=== PATIENT | female | born 1950 | race Caucasian/White ===

== ENCOUNTER 2022-02-16 12:00 | Outpatient (CLI) | payer MEDICARE, SELFPAY ==
[2022-02-16 12:24] VITALS: BP 181/93; PULSE 57; RESP 18; O2SAT 94
[2022-02-16] MEDS: TETRACAINE 0.5% OPHTH 1 DROP EYE-BOTH ×3 (12:26→12:43)
[2022-02-16] MEDS: BRIMONIDINE TARTRATE 0.2% OPHTH 1 DROP EYE-BOTH ×2 (12:27→12:58)
--- NOTE | 2022-02-16 13:42 | P.OPTPRC_ITS ---
Procedure Note Date of procedure: 02/16/22 [facility] bill your pro fee for this procedure?: Yes Procedure Description: SURGEON: Valarie Robins MD PREOPERATIVE DIAGNOSIS: Posterior capsular opacity, right and left eye POSTOPERATIVE DIAGNOSIS: Posterior capsular opacity, right and left eye PROCEDURE: YAG laser capsulotomy, both eyes ANESTHESIA: Topical. ESTIMATED BLOOD LOSS: None PATHOLOGY SPECIMEN: None COMPLICATIONS: None INDICATIONS: See consult note for details. The risks, benefits and alternatives of the procedure were explained to the patient, who elected to proceed and signed informed consent to do so. PROCEDURE: The patient was brought to the pre-holding area where the right and left eyes were identified as the operative eyes. I placed my initials above the eyes. The following was given in both eyes: The patient received 2 sets of 1 drop of 0.5% tetracaine and 1 drop of 1% tropicamide. They also received 1 drop of 0.2% brimonidine. They received 1 drop of 0.5% tetracaine immediately prior to bringing them back for the procedure. The patient was then brought to the procedure room where the right and left eyes were again identified as the operative eyes. A YAG Jefferson capsulotomy lens was placed on the right eye. The laser was administered using a total number of 9 shots with an energy of 2.4 mJ per shot for a total energy of 22 mJ. The patient tolerated the procedure well. A YAG Jefferson capsulotomy lens was placed on the left eye. The laser was administered using a total number of 8 shots with an energy of 2.4 mJ per shot for a total energy of 19 mJ. The patient tolerated the procedure well. DISPOSITION: The patient was taken back to the pre-holding area and given 1 drop of 0.2% brimonidine in both eyes. They were discharged to home in stable condition. The patient was instructed to call me or go to the emergency de partment with any sudden change, including dramatic loss of vision, severe pain in the eye or eyebrow region, nausea, or vomiting. The patient was instructed to use the 0.2% brimonidine 1 drop 2 times a day in both eyes for 1 week. The patient will follow up in the clinic in 1-2 weeks. Surgeon: Valarie Robins MD
== END 2022-02-16 13:00 | disposition home or self-care (01) ==
LOC: EYE PRC 12:04
PROVIDERS: PCP Family Medicine; Visit Provider Ophthalmology
DX: H26.9 Unspecified cataract (principal)
CPT/HCPCS: 66821; A9270

== ENCOUNTER 2022-04-25 09:11 | Emergency (ER) | payer MEDICARE, SELFPAY ==
[2022-04-25 09:16] VITALS: BP 173/105; PULSE 52; RESP 22; TEMP 36.2; O2SAT 95; BMI 45.2
--- NOTE | 2022-04-25 09:38 | ED.GENADULT ---
HPI - General Adult General Time Seen by Provider: 09:38 Date Seen: 04/25/22 Chief complaint: Flank Pain Stated complaint: UTI, R side pain Time Seen by Provider: 04/25/22 09:38 Source: patient and RN notes reviewed Mode of arrival: ambulatory Limitations: no limitations History of Present Illness HPI narrative: Patient is a 71-year-old female that is coming in with increasing right abdominal pain/flank pain. She is feeling chilled, having dry heaves. Pain worsens at times. Diminished oral intake currently. Has not actually had a temperature but has felt quite clammy at times, usually in the setting of severe pain. Was having urinary symptoms in went to urgent care at [place] [id number] on Monday. Was started on Keflex for UTI. Patient does have a history of 1 kidney stone before. She states that she is quite intolerant of narcotic pain medicines, would prefer to not use these. She has been trying Advil at home for pain management. Did review with her that we can try a dose of IV Toradol which she would like to do before attempting any narcotics. Related Data Home Medications Medication Instructions Recorded Confirmed cephalexin 500 mg capsule 500 mg PO TID 04/25/22 04/25/22 hydrochlorothiazide 12.5 mg tablet 12.5 mg PO DAILY 04/25/22 04/25/22 losartan 100 mg tablet 100 mg PO DAILY 04/25/22 04/25/22 omeprazole 20 mg capsule,delayed 20 mg PO DAILY 04/25/22 04/25/22 release rosuvastatin 5 mg tablet 5 mg PO DAILY 04/25/22 04/25/22 Previous Rx's Medication Instructions Recorded ketorolac 10 mg tablet 10 mg PO TID PRN pain 5 days #15 04/25/22 tabs tamsulosin 0.4 mg capsule (Flomax) 0.4 mg PO DAILY #14 caps 04/25/22 Allergies Allergy/AdvReac Type Severity Reaction Status Date / Time Sulfa (Sulfonamide Allergy Mild Hives Verified 04/25/22 09:22 Antibiotics) Opioids - Morphine Analogues Allergy vomiting Verified 04/25/22 09:22 Review of Systems Status of ROS: Reports: 6 or more systems reviewed and unremarkable except as noted in History and below PFSH PFSH Social History Smoking Status: Smoker, status unknown Exam Const: Vital Signs, click to edit/add: Vital Signs - 24 hr 04/25/22 09:16 04/25/22 10:13 04/25/22 10:54 Temperature 97.1 F L Pulse Rate [Right Pulse Oximeter] 52 L 67 Respiratory Rate 22 Blood Pressure [Ri ght Upper Arm] 173/105 H Pulse Oximetry 95 95 94 Oxygen Delivery Me thod Room Air Room Air Common normals: no apparent distress, oriented x3, no limitations, healthy appearing, alert and well nourished General appearance: cooperative, comfortable, well kempt and well developed Nutritional appearance: obese HENMT: Common normals: normocephalic, head/scalp atraumatic, hearing grossly normal bilaterally and external ears normal Head and scalp: normocephalic and atraumatic External ear: external ears normal Eye: Common normals: PERRL, EOMs intact bilaterally, conjunctivae normal and no scleral icterus Conjunctiva: conjunctiva(e) normal Pupil: PERRL Neck & C-Spine: Common normals: full ROM, no lymphadenopathy, supple, no meningeal signs, no JVD and thyroid normal Thyroid: thyroid normal Resp: Common normals: normal respiratory effort, no retractions, no use of accessory muscles and clear to auscultation bilaterally Auscultation: clear to auscultation bilaterally Cardio: Common normals: no JVD, regular rate, regular rhythm, S1 normal heart sound, S2 normal heart sound, no gallops, no clicks and no murmurs Rate: regular rate Rhythm: regular rhythm Heart sounds: S1 normal and S2 normal GI: Common normals: Normal to inspection, nondistended, normoactive bowel sounds present, soft to palpation, no hepatosplenomegaly and no masses Palpation: soft and no hepatosplenomegaly Other: Has right sided mid to upper abdominal pain, seems to be no rebound or guarding at this time however. Extremity: Other: Patient has been up ambulatory in the ED going to the restroom to collect her urinalysis. No problems with ambulation. Neuro: Common normals: oriented x3 Sensorium/orientation: alert Meningeal signs: no meningeal signs Psych: Appearance: well kempt Course Course Hospital Course: Will attempt to get her urinalysis and urine culture records. She thinks maybe it was E coli. Reviewed with her given her symptoms, we need to definitely make sure that there is no underlying retained kidney stone. This would become a surgical emergency if she had an infected kidney stone. Will obtain 1 blood culture when we do blood work and get a 2nd 1 if need be. Will initiate a L of IV fluids over 2 hours, give her 15 mg IV Toradol. We will be checking her chemistries as well as other labs. Will also really run a urinalysis. Reevaluation(s) Reevaluation #1: Patient is feeling better on Toradol. Have reviewed with her that she does indeed have a 6 mm kidney stone in the right ureter. It is not up to the junction of going in the bladder yet. There is a chance that this may not passed through. We will initiate her on Flomax, send her with Toradol but at lower dosage. Have reviewed the renal dysfunction that can ensue with Toradol particularly as we age. It is working for her however and she does not tolerate narcotics. She has an appointment scheduled on Monday with her primary care provider Dr. Sr, I would like her to keep this. They can work on getting her scheduled to follow-up with urology if need be. Have reviewed the limitations of medical cares right now, difficulty with transfers and that there is no urology here. Patient does understand this. She does not seem to need narcotics at this time but this may need to be considered. Reviewed that there was a negative urine culture from her urgent care visit. We will also culture her urine from here. I believe I am just going to have her complete the Keflex however as she was nitrite positive from urgent care. Time: 12:04 Vital Signs Vital signs: Initial Vital Signs Temperature 97.1 F L 04/25/22 09:16 Temperature Source Temporal Artery Scan 04/25/22 09:16 Pulse Rate 52 L 04/25/22 09:16 Respiratory Rate 22 04/25/22 09:16 Blood Pressure 173/105 H 04/25/22 09:16 Blood Pressure Mean 127 04/25/22 09:16 Blood Pressure Position Sitting 04/25/22 09:16 Pulse Oximetry 95 04/25/22 09:16 Oxygen Delivery Method 04/25/22 09:16 Vital Signs Temperature 97.1 F L 04/25/22 09:16 Pulse Rate 52 L 04/25/22 09:16 Respiratory Rate 22 04/25/22 09:16 Blood Pressure 173/105 H 04/25/22 09:16 Pulse Oximetry 95 04/25/22 09:16 Oxygen Delivery Method 04/25/22 09:16 Temperature 97.1 F L 04/25/22 09:16 Pulse Rate 67 04/25/22 10:54 Respiratory Rate 22 04/25/22 09:16 Blood Pressure 173/105 H 04/25/22 09:16 Pulse Oximetry 94 04/25/22 10:54 Oxygen Delivery Method 04/25/22 10:54 Medical Decision Making Medical Records Medical records reviewed: Yes I reviewed the patient's medical records Medical records narrative: Patient's urinalysis from April 22 was brown, cloudy, specific gravity greater than 1.030, protein present, trace ketones, no glucose, large occult blood, positive nitrates, trace leukocyte esterase, 51-100 red blood cells, 0-2 white blood cells, few bacteria, no epithelial cells. Urine culture is no growth. Lab Data Lab results reviewed: Yes I reviewed the patient's lab results Labs: Lab Results 04/25/22 04/25/22 04/25/22 Range/Units 09:44 10:15 10:15 WBC 7.92 (4.50-11.00) K/uL RBC 4.74 (4.00-5.20) m/uL Hgb 14.9 (12.0-16.0) gm/dL Hct 46.1 (33.0-51.0) % MCV 97 (80-100) fL MCH 31 (26-34) pg MCHC 32 (32-36) gm/dL RDW Coeff of Trip 12.9 (11.5-15.5) % Plt Count 151 (140-440) K/uL Neut % (Auto) 88.1 H (42.0-72.0) % Lymph % (Auto) 6.8 L (20-44) % [place] % (Auto) 4.2 (0.0-11.0) % Eos % (Auto) 0.5 (0.0-7.0) % Baso % (Auto) 0.1 (0.0-3.0) % Neut # (Auto) 7.00 (1.7-7.0) K/uL Lymph # (Auto) 0.50 L (0.90-2.90) K/uL [place] # (Auto) 0.30 (0.00-0.90) K/UL Eos # (Auto) 0.04 (0.00-0.50) K/uL Baso # (Auto) 0.01 (0.00-0.30) K/uL Sodium 141 (135-149) mmol/L Potassium 4.1 (3.6-5.1) mmol/L Chloride 106 (96-114) mmol/L Carbon Dioxide 31 (20-32) mmol/L BUN 19 (7-30) mg/dL Creatinine 1.0 (0.5-1.5) mg/dL Estimated Creat Clear 49.00 Estimated GFR 61 ml/min Glucose 132 H (60-115) mg/dL Lactate (0.5-1.9) mmol/L Calcium 9.4 (8.4-10.6) mg/dL C-Reactive Protein < 0.5 L (0.5-1.0) mg/dL Urine Color Brown A (Yellow) Urine Appearance Cloudy A (Clear) Urine pH 6.0 (5.0-8.5) Ur Specific [place] >= 1.030 (1.000-1.030) Urine Protein 2+ A (Negative) Urine Glucose (UA) Negative (Negative) Urine Ketones Negative (Negative) Urine Blood 3+ A (Negative) Urine Nitrite Negative (Negative) Urine Bilirubin Negative (Negative) Urine Urobilinogen 0.2 (0.2-1.0) Ur Leukocyte Esterase Negative (Negative) Urine RBC 50-100 A (0-2) Urine WBC 0-2 (0-5) Ur Squamous Epith Cells Moderate A (None-Few) Urine Bacteria Moderate A (None) 04/25/22 Range/Units 10:15 WBC (4.50-11.00) K/uL RBC (4.00-5.20) m/uL Hgb (12.0-16.0) gm/dL Hct (33.0-51.0) % MCV (80-100) fL MCH (26-34) pg MCHC (32-36) gm/dL RDW Coeff of Trip (11.5-15.5) % Plt Count (140-440) K/uL Neut % (Auto) (42.0-72.0) % Lymph % (Auto) (20-44) % [place] % (Auto) (0.0-11.0) % Eos % (Auto) (0.0-7.0) % Baso % (Auto) (0.0-3.0) % Neut # (Auto) (1.7-7.0) K/uL Lymph # (Auto) (0.90-2.90) K/uL [place] # (Auto) (0.00-0.90) K/UL Eos # (Auto) (0.00-0.50) K/uL Baso # (Auto) (0.00-0.30) K/uL Sodium (135-149) mmol/L Potassium (3.6-5.1) mmol/L Chloride (96-114) mmol/L Carbon Dioxide (20-32) mmol/L BUN (7-30) mg/dL Creatinine (0.5-1.5) mg/dL Estimated Creat Clear Estimated GFR ml/min Glucose (60-115) mg/dL Lactate 1.2 (0.5-1.9) mmol/L Calcium (8.4-10.6) mg/dL C-Reactive Protein (0.5-1.0) mg/dL Urine Color (Yellow) Urine Appearance (Clear) Urine pH (5.0-8.5) Ur Specific [place] (1.000-1.030) Urine Protein (Negative) Urine Glucose (UA) (Negative) Urine Ketones (Negative) Urine Blood (Negative) Urine Nitrite (Negative) Urine Bilirubin (Negative) Urine Urobilinogen (0.2-1.0) Ur Leukocyte Esterase (Negative) Urine RBC (0-2) Urine WBC (0-5) Ur Squamous Epith Cells (None-Few) Urine Bacteria (None) Imaging Data CT scan - abdomen: Attestation: I have reviewed the pertinent imaging results. My impression: Reviewed her CT preliminarily. I do think I see a right-sided stone in the ureter, do see some hydronephrosis. Await Radiology over-read. Radiologist's impression: Patient: RAN BIANCHI Facility:?[facility] Patient ID:?[id number] Site Patient ID:?[id number]. Site :?[id number] Study:?CT Abdomen/Pelvis W/O-04/25/2022 10:35:14 AM Ordering Physician:?Bision Karen Final Report: INDICATION: Flank pain. TECHNIQUE: CT abdomen and pelvis without contrast. COMPARISON: None. FINDINGS: Lower chest: Unremarkable. Liver: Normal in size and attenuation. No suspicious masses. Gallbladder and bile ducts: No stones or inflammation. No biliary dilatation. Pancreas: Unremarkable. No mass or inflammation. Spleen: Normal in size. No masses. Adrenal glands: Normal in size. No nodules. Kidneys: Moderate right hydroureteronephrosis extending to the level of a 6 millimeter stone within the distal right ureter approximately 5 centimeters from the UVJ. No additional urinary tract calculi. GI tract: Unremarkable. Normal in caliber. No sign of mass or inflammation. Colonic diverticulosis without evidence of acute diverticulitis. Vasculature: Abdominal aorta is normal in caliber. Scattered atherosclerosis. Lymph nodes: No lymphadenopathy. Peritoneum/Abdominal Wall: Unremarkable. No sign of mass or infiltration. No free air or significant free fluid. Pelvis: Unremarkable. No pelvic masses. Bones: Degenerative spondylosis. No acute osseous abnormality. IMPRESSION: 1. 6 millimeter stone within the distal right ureter results in moderate right hydroureteronephrosis. 2. Colonic diverticulosis without evidence of acute diverticulitis Please note that all CT scans at this facility use dose modulation, iterative reconstruction, and/or weight-based dosing when appropriate to reduce radiation dose to as low as reasonably achievable. Dictated by Torito Fuentes MD @ 04/25/2022 10:58:16 AM (Electronic Signature) Critical Care Time Critical Care Time Critical Care Time: No Discharge Plan Discharge Clinical Impression: Renal colic on right side Patient Disposition: Home, Self-Care Condition: Stable Instructions: Kidney Stones (ED), Renal Colic (ED) Additional Instructions: Use Toradol instead of Advil until the Toradol gone. Can use Tylenol well on either of these and may want to try some at a dosage of a 1000 mg up to 3 times a day to supplement pain management. Take Flomax daily until the stone has passed. Keep your clinic appointment with your primary care provider this Monday, I would like her to recheck your kidney functions since you have an obstructing stone on the right side and the fact that we are using Toradol. You may end up needing to see Urology, she can put in a referral for this. In the meantime, if you have uncontrolled pain, nausea vomiting and cannot take in oral pain medicines or fluids, develop a fever with this kidney stone in place, need to be emergently re-evaluated. Recommend pushing fluids for a goal of clear looking urine. Activity Level: Activity as Tolerated Discharge Diet: Regular Prescriptions: New tamsulosin [Flomax] 0.4 mg capsule 0.4 mg PO DAILY Qty: 14 0RF ketorolac 10 mg tablet 10 mg PO TID PRN (Reason: pain) 5 Days Qty: 15 0RF No Action cephalexin 500 mg capsule 500 mg PO TID Label Comments: TAKE ONE CAPSULE BY MOUTH THREE TIMES A DAY FOR 7 DAYS hydrochlorothiazide 12.5 mg tablet 12.5 mg PO DAILY Label Comments: TAKE ONE TABLET BY MOUTH EVERY DAY losartan 100 mg tablet 100 mg PO DAILY Label Comments: TAKE ONE TABLET BY MOUTH EVERY DAY ALONG WITH THE HYDROCHLOROTHIAZIDE omeprazole 20 mg capsule,delayed release(DR/EC) 20 mg PO DAILY Label Comments: TAKE ONE CAPSULE BY MOUTH EVERY DAY BEFORE A MEAL rosuvastatin 5 mg tablet 5 mg PO DAILY Label Comments: TAKE ONE TABLET BY MOUTH AT BEDTIME Follow Up/Referrals: Lindy Sr DO [Primary Care Provider] - Stand Alone Forms: OY LX [employer] Info Instructions
[2022-04-25 09:53] LABS: Appearance Urine Cloudy (Clear); Bilirubin Urine Negative (Negative); Blood Urine 3+ (Negative); Color Urine Brown (Yellow); Glucose Urine Negative (Negative); Ketones Urine Negative (Negative); Leukocyte Esterase Urine Negative (Negative); Nitrite Urine Negative (Negative); Protein Urine 2+ (Negative); Specific Gravity Urine >= 1.030 (1.000-1.030); Urobilinogen Urine 0.2 (0.2-1.0)
--- NOTE | 2022-04-25 09:55 | CRLHL7_ITS ---
For Patients: As a result of the Century Cures Act, medical imaging exams and procedure reports are released immediately into your electronic medical record. You may view this report before your referring provider. If you have questions, please contact your health care provider. INDICATION: Flank pain. TECHNIQUE: CT abdomen and pelvis without contrast. COMPARISON: None. FINDINGS: Lower chest: Unremarkable. Liver: Normal in size and attenuation. No suspicious masses. Gallbladder and bile ducts: No stones or inflammation. No biliary dilatation. Pancreas: Unremarkable. No mass or inflammation. Spleen: Normal in size. No masses. Adrenal glands: Normal in size. No nodules. Kidneys: Moderate right hydroureteronephrosis extending to the level of a 6 millimeter stone within the distal right ureter approximately 5 centimeters from the UVJ. No additional urinary tract calculi. GI tract: Unremarkable. Normal in caliber. No sign of mass or inflammation. Colonic diverticulosis without evidence of acute diverticulitis. Vasculature: Abdominal aorta is normal in caliber. Scattered atherosclerosis. Lymph nodes: No lymphadenopathy. Peritoneum/Abdominal Wall: Unremarkable. No sign of mass or infiltration. No free air or significant free fluid. Pelvis: Unremarkable. No pelvic masses. Bones: Degenerative spondylosis. No acute osseous abnormality. IMPRESSION: 1. 6 millimeter stone within the distal right ureter results in moderate right hydroureteronephrosis. 2. Colonic diverticulosis without evidence of acute diverticulitis Please note that all CT scans at this facility use dose modulation, iterative reconstruction, and/or weight-based dosing when appropriate to reduce radiation dose to as low as reasonably achievable. Dictated by Torito Fuentes MD @ 04/25/2022 10:58:16 AM (Electronically Signed)
[2022-04-25 10:02] LABS: Bacteria Urine Moderate; RBC Urine 50-100 (0-2); Squamous Epithelial Cell Urine Moderate (None-Few); WBC Urine 0-2 (0-5)
[2022-04-25 10:13] VITALS: O2SAT 95
[2022-04-25] MEDS: KETOROLAC 15 MG/ML inj IVP (10:15)
[2022-04-25] MEDS: ONDANSETRON 2 MG/ML inj 4 MG IVP (10:15)
[2022-04-25] MEDS: 0.9 % SODIUM CHLORIDE 1000 ml 1,000 ML 500 ML IV (10:15)
[2022-04-25 10:25] LABS: Lactate* 1.2 mmol/L (0.5-1.9)
[2022-04-25 10:26] LABS: Basophils Absolute Auto 0.01 K/uL (0.00-0.30); Basophils Percent Auto 0.1 % (0.0-3.0); Eosinophils Absolute Auto 0.04 K/uL (0.00-0.50); Eosinophils Percent Auto 0.5 % (0.0-7.0); Hematocrit 46.1 % (33.0-51.0); Hemoglobin* 14.9 gm/dL (12.0-16.0); Immature Granulocytes Abs Auto 0.02 K/uL (0.00-0.30); Immature Granulocytes Pct Auto 0.3 %; Lymphocytes Percent Auto 6.8 % (20-44); Mean Corpuscular HGB Conc 32 gm/dL (32-36); Mean Corpuscular Hemoglobin 31 pg (26-34); Mean Corpuscular Volume 97 fL (80-100); Monocytes Percent Auto 4.2 % (0.0-11.0); Neutrophils Percent Auto 88.1 % (42.0-72.0); Platelet Count* 151 K/uL (140-440); RDW Coefficient of Variation % 12.9 % (11.5-15.5); Red Blood Count 4.74 m/uL (4.00-5.20); White Blood Count* 7.92 K/uL (4.50-11.00)
[2022-04-25 10:27] LABS: Slide Review Reflex No
[2022-04-25 10:44] LABS: Chloride* 106 mmol/L (96-114); Potassium* 4.1 mmol/L (3.6-5.1); Sodium* 141 mmol/L (135-149)
[2022-04-25 10:47] LABS: Estimated Glomerular Filt Rate 61 ml/min
[2022-04-25 10:48] LABS: Blood Urea Nitrogen* 19 mg/dL (7-30); Calcium* 9.4 mg/dL (8.4-10.6); Carbon Dioxide* 31 mmol/L (20-32); Glucose* 132 mg/dL (60-115)
[2022-04-25 10:54] VITALS: PULSE 67; O2SAT 94
[2022-04-25 11:00] LABS: C Reactive Protein* < 0.5 mg/dL (0.5-1.0)
[2022-04-25 12:15] VITALS: PULSE 59; RESP 18; O2SAT 93
[2022-04-25 12:16] VITALS: BP 173/105; PULSE 59; RESP 18; TEMP 36.2
== END 2022-04-25 12:24 | disposition home or self-care (01) ==
PROVIDERS: Emergency Provider Family Medicine; PCP Family Medicine
DX: N23 Unspecified renal colic (principal)
CPT/HCPCS: 36415; 74176; 80048; 81001; 83605; 85025; 86140; 87040; 87086; 94761; 96360; 96374; 96375; 99284; J1885; J2405; J7030

== ENCOUNTER 2023-05-29 08:56 | Emergency (ER) | payer MEDICARE, SELFPAY ==
[2023-05-29] VITALS (22 sets, daily range): BP systolic 90–140; BP diastolic 54–95; PULSE 45–58; RESP 8–29; TEMP 36.9; O2SAT 89–99; BMI 43.1
--- NOTE | 2023-05-29 | XR_ITS ---
Patient: RAN BIANCHI Facility:?[facility] Patient ID:?[id number] Site Patient ID:?[id number]. Site :?[id number] Study:?XRay-Extremity Left SHOULDER-05/29/2023 11:56:32 AM Ordering Physician:?DR BRASWELL Final Report: INDICATION: Postreduction COMPARISON: Same day humerus radiographs TECHNIQUE: AP one-view left shoulder FINDINGS: No fracture. Grossly normal glenohumeral alignment, would be better evaluated with a scapular Y or axillary view. Joint spaces are normal. No focal bone lesions. Normal bone mineralization. Soft tissues are normal. No foreign body. IMPRESSION: Grossly normal left glenohumeral alignment. No fracture seen. Dictated by Beatrice Christie MD @ 05/29/2023 12:02:50 PM Signed by:?Beatrice Christie MD @05/29/2023 12:02:50 PM (Electronic Signature)
--- NOTE | 2023-05-29 09:03 | ED_ITS ---
HPI - General Adult General Time Seen by Provider: 09:03 Date Seen: 05/29/23 Chief complaint: Extremity Pain/Injury, Upper Stated complaint: fall Time Seen by Provider: 05/29/23 09:03 Source: patient, EMS, RN notes reviewed and old records reviewed Mode of arrival: EMS Limitations: no limitations History of Present Illness HPI narrative: 72-year-old female who comes in today after fall. Reviewed prior emergency department record from April 2022 when patient seen with renal colic, found to have a 6 mm kidney stone, treated and discharged. Patient has a history of hypertension. Presents today after fall. She was outside and tripped, complains mostly pain in left shoulder although having some pain in the right ribcage is well now. Also says she hit her left knee. No head injury loss of consciousness, no back pain or abdominal pain. Related Data Home Medications Medication Instructions Recorded Confirmed cephalexin 500 mg capsule 500 mg PO TID 04/25/22 04/25/22 hydrochlorothiazide 12.5 mg tablet 12.5 mg PO DAILY 04/25/22 05/29/23 losartan 100 mg tablet 100 mg PO DAILY 04/25/22 05/29/23 omeprazole 20 mg capsule,delayed 20 mg PO DAILY 04/25/22 05/29/23 release rosuvastatin 5 mg tablet 5 mg PO DAILY 04/25/22 05/29/23 vitamins A,C,J-moix-fqynic 4,296 1 cap PO DAILY 05/29/23 05/29/23 mcg-226 mg-90 mg capsule (PreserVision AREDS) Previous Rx's Medication Instructions Recorded ketorolac 10 mg tablet 10 mg PO TID PRN pain 5 days #15 04/25/22 tabs tamsulosin 0.4 mg capsule (Flomax) 0.4 mg PO DAILY #14 caps 04/25/22 Allergies Allergy/AdvReac Type Severity Reaction Status Date / Time Sulfa (Sulfonamide Allergy Mild Hives Verified 05/29/23 09:04 Antibiotics) Opioids - Morphine Analogues Allergy vomiting Verified 05/29/23 09:04 PFSH PFSH Social History Smoking Status: Never smoker How often do you have a drink containing alcohol: never AUDIT-C Alcohol total score: 0 Non-prescribed substance use: denies use Exam Narrative: Exam Narrative: General: Well-developed and well-nourished, no acute distress Head: Atraumatic and normocephalic Eyes: Pupils are equal reactive, extraocular motions intact, conjunctiva clear ENT: External nose and ears are normal, posterior pharynx without erythema or exudate Neck: No midline cervical tenderness, full spontaneous range of motion the neck, trachea midline, no adenopathy Heart: Regular rate and rhythm no murmurs or thrills Lungs: Clear to auscultation bilaterally without wheezes or crackles Abdomen: Soft, nontender, nondistended with active bowel sounds Musculoskeletal: Tenderness of the left shoulder/proximal humerus, no tenderness of the clavicle. Swelling and bruising of the left knee, abrasion of the left knee. Abrasion of the right arm. Neurologic: Awake, alert, and oriented x3, no gross focal neurologic deficits, cranial nerves intact as tested Psych: Mood and affect are appropriate Skin: No rashes Const: Vital Signs, click to edit/add: Vital Signs - 24 hr 05/29/23 09:01 05/29/23 09:43 05/29/23 10:00 Temperature 98.4 F Pulse Rate 54 L 45 L Pulse Rate [Pulse Oximeter] 55 L Respiratory Rate 16 Blood Pressure Blood Pressure [Ri ght Upper Arm] 140/95 H Pulse Oximetry 94 97 95 Oxygen Delivery Me thod Nasal Cannula Oxygen Flow Rate 2 05/29/23 10:17 05/29/23 10:30 05/29/23 10:32 Temperature Pulse Rate 50 L 49 L 54 L Pulse Rate [Pulse Oximeter] Respiratory Rate 16 14 13 Blood Pressure 116/78 124/78 Blood Pressure [Ri ght Upper Arm] Pulse Oximetry 93 94 96 Oxygen Delivery Me thod Oxygen Flow Rate 05/29/23 11:00 05/29/23 11:00 05/29/23 11:02 Temperature Pulse Rate 54 L 54 L Pulse Rate [Pulse Oximeter] Respiratory Rate 14 15 Blood Pressure 131/79 Blood Pressure [Ri ght Upper Arm] Pulse Oximetry 95 96 96 Oxygen Delivery Me thod Nasal Cannula Oxygen Flow Rate 05/29/23 11:02 05/29/23 11:03 05/29/23 11:30 Temperature Pulse Rate 54 L 55 L 53 L Pulse Rate [Pulse Oximeter] Respiratory Rate 15 14 19 Blood Pressure 131/79 Blood Pressure [Ri ght Upper Arm] Pulse Oximetry 96 96 99 Oxygen Delivery Me thod Oxygen Flow Rate 05/29/23 11:33 05/29/23 11:36 05/29/23 11:42 Temperature Pulse Rate 51 L 54 L 57 L Pulse Rate [Pulse Oximeter] Respiratory Rate 29 H 8 L 10 L Blood Pressure 114/71 124/78 137/61 Blood Pressure [Ri ght Upper Arm] Pulse Oximetry 98 97 89 Oxygen Delivery Me thod Oxygen Flow Rate 05/29/23 11:50 05/29/23 11:50 05/29/23 11:52 Temperature Pulse Rate 55 L 55 L 56 L Pulse Rate [Pulse Oximeter] Respiratory Rate 9 L 9 L 11 L Blood Pressure 110/57 L 110/57 L 108/59 L Blood Pressure [Ri ght Upper Arm] Pulse Oximetry 96 96 97 Oxygen Delivery Me thod Oxygen Flow Rate 05/29/23 11:57 05/29/23 12:00 05/29/23 12:02 Temperature Pulse Rate 58 L 55 L 57 L Pulse Rate [Pulse Oximeter] Respiratory Rate 12 11 L 16 Blood Pressure 103/61 90/54 L Blood Pressure [Ri ght Upper Arm] Pulse Oximetry 98 99 98 Oxygen Delivery Me thod Oxygen Flow Rate 05/29/23 12:07 Temperature Pulse Rate 58 L Pulse Rate [Pulse Oximeter] Respiratory Rate 14 Blood Pressure 107/56 L Blood Pressure [Ri ght Upper Arm] Pulse Oximetry 97 Oxygen Delivery Me thod Oxygen Flow Rate Course Course ED Course: Patient seen examined, prior emergency department records from April 2022 reviewed. Patient presents today after a fall. She complains predominantly pain in left shoulder and has tenderness of the proximal humerus, suspect fracture, dislocation possible, x-rays are ordered. Also complains of some occasional sharp pain on the right side although this is not constant and not reproducible, however does get worse with breathing and so x-rays are ordered. Abrasion with marked swelling and bruising over the left knee, x-ray ordered although patient has had a total knee on this side and this does not appear to be dislocated or displaced. Received fentanyl 100 mcg per EMS, Toradol and add itional data will be given in the department. Reevaluation(s) Time of Reevaluation #1: 09:34 Reevaluation #1: X-ray of the left knee independently interpreted by me negative for acute fracture. X-ray of the left humerus demonstrates dislocation. Two sticks drinking completely interpreted by me negative for hemothorax, pneumothorax. Time of Reevaluation #2: 10:27 Reevaluation #2: With multiple attempts of the Davos and Landa technique over 30 minutes with no reduction. Anesthesia contacted for sedation. Time of Reevaluation #3: 11:47 Reevaluation #3: Procedure: Shoulder reduction. Risks and benefits discussed with the patient, written consent was obtained. Sedation with propofol per anesthesia. Pulse oximetry, end-tidal CO2, telemetry in place. Advanced airway equipment immediately available. After assuring sedation, the left shoulder was externally rotated. There was a slight click but the humeral head was still obviously anterior dislocated come this likely represented subluxation at the glenoid. Subsequently with external rotation a more palpable funk was felt with improvement of joint alignment. X-ray was ordered to confirm reduction and postprocedure x-ray does appear to show successful reduction of the dislocation. Patient recovered from sedation. Patient did require brief jaw thrust to maintain saturations. Overall tolerated procedure well. Total MD time 15 minutes. Vital Signs Vital signs: Initial Vital Signs Temperature 98.4 F 05/29/23 09:01 Temperature Source Temporal Artery Scan 05/29/23 09:01 Pulse Rate 55 L 05/29/23 09:01 Pulse Rhythm Regular 05/29/23 09:01 Pulse Strength 3+ Normal 05/29/23 09:01 Respiratory Rate 16 05/29/23 09:01 Blood Pressure 140/95 H 05/29/23 09:01 Blood Pressure Mean 110 H 05/29/23 09:01 Blood Pressure Position Sitting 05/29/23 09:01 Pulse Oximetry 94 05/29/23 09:01 Oxygen Delivery Method Nasal Cannula 05/29/23 09:01 Oxygen Flow Rate 2 05/29/23 09:01 Vital Signs Temperature 98.4 F 05/29/23 09:01 Pulse Rate 55 L 05/29/23 09:01 Respiratory Rate 16 05/29/23 09:01 Blood Pressure 140/95 H 05/29/23 09:01 Pulse Oximetry 94 05/29/23 09:01 Oxygen Delivery Method Nasal Cannula 05/29/23 09:01 Oxygen Flow Rate 2 05/29/23 09:01 Temperature 98.4 F 05/29/23 09:01 Pulse Rate 58 L 05/29/23 12:07 Respiratory Rate 14 05/29/23 12:07 Blood Pressure 107/56 L 05/29/23 12:07 Pulse Oximetry 97 05/29/23 12:07 Oxygen Delivery Method Nasal Cannula 05/29/23 11:00 Oxygen Flow Rate 2 05/29/23 09:01 Medications Administered Medications: Discontinued Medications Generic Name Dose Route Start Last Admin Trade Name Miracle PRN Reason Stop Dose Admin Fentanyl 50 mcg 05/29/23 09:35 05/29/23 11:00 Fentanyl 100 Mcg/2 Ml Inj IVP 05/29/23 09:36 Not Given ONCE ONE Ketorolac Tromethamine 15 mg 05/29/23 09:11 05/29/23 09:16 Ketorolac 15 Mg/Ml Inj IVP 05/29/23 09:12 15 mg ONCE ONE Administration Lorazepam 0.5 mg 05/29/23 10:37 05/29/23 10:45 Lorazepam 2 Mg/Ml Inj IVP 05/29/23 10:38 0.5 mg ONCE ONE Administration Ondansetron HCl 4 mg 05/29/23 10:52 05/29/23 10:00 Ondansetron 2 Mg/Ml Inj IVP 05/29/23 10:53 4 mg ONCE ONE Administration Discharge Plan Discharge Clinical Impression: Anterior dislocation of left shoulder, Contusion of knee, left, Abrasion of elbow, right Patient Disposition: Home, Self-Care Condition: Stable Instructions: Shoulder Dislocation (ED), Abrasion (ED), Procedural Sedation (ED) Additional Instructions: Tylenol and ibuprofen as needed for pain Ice today and tomorrow Follow-up with orthopedics this week Call [facility] [phone] for a follow-up appointment this week for recheck and physical exam Activity Detail: Do not lift the shoulder over shoulder height or reach behind you. Discharge Diet: Regular Prescriptions: No Action cephalexin 500 mg capsule 500 mg PO TID Patient Comments: TAKE ONE CAPSULE BY MOUTH THREE TIMES A DAY FOR 7 DAYS hydrochlorothiazide 12.5 mg tablet 12.5 mg PO DAILY Patient Comments: TAKE ONE TABLET BY MOUTH EVERY DAY losartan 100 mg tablet 100 mg PO DAILY Patient Comments: TAKE ONE TABLET BY MOUTH EVERY DAY ALONG WITH THE HYDROCHLOROTHIAZIDE omeprazole 20 mg capsule,delayed release(DR/EC) 20 mg PO DAILY Patient Comments: TAKE ONE CAPSULE BY MOUTH EVERY DAY BEFORE A MEAL rosuvastatin 5 mg tablet 5 mg PO DAILY Patient Comments: TAKE ONE TABLET BY MOUTH AT BEDTIME tamsulosin [Flomax] 0.4 mg capsule 0.4 mg PO DAILY Qty: 14 0RF ketorolac 10 mg tablet 10 mg PO TID PRN (Reason: pain) 5 Days Qty: 15 0RF PreserVision AREDS 4,296 mcg-226 mg-90 mg capsule 1 cap PO DAILY Follow Up/Referrals: Orthopedics, [facility] [Provider Group] Lindy Sr DO [Primary Care Provider] - Stand Alone [facility]
--- NOTE | 2023-05-29 09:11 | XR_ITS ---
Patient: RAN BIANCHI Facility:?[facility] Patient ID:?[id number] Site Patient ID:?[id number]. Site :?1950 Study:?XRay-Chest 1 VIEW-05/29/2023 9:38:10 AM Ordering Physician:KESHAV Final Report: Indication: Fall Technique: Chest 1 view Comparison: None Findings/Impression: Cardiovascular and mediastinum: Mild cardiomegaly with aortic tortuosity and slight prominence of the superior mediastinum. Suggest chest CT with IV contrast for further evaluation. Lungs and pleural space: Low lung volumes without pleural effusion or pneumothorax. Pulmonary cephalization. Bones and soft tissues: Anterior dislocation of the left humerus the glenohumeral joint with small ossific fragment at the joint space, likely a small chip type fracture from the humeral head. This can also be evaluated at the time of CT. Dictated by Jerald Nagel MD @ 05/29/2023 9:55:52 AM Signed by:?Jerald Nagel MD @05/29/2023 9:55:52 AM (Electronic Signature)
--- NOTE | 2023-05-29 09:11 | XR_ITS ---
Patient: RAN BIANCHI Facility:?[facility] Patient ID:?[id number] Site Patient ID:?[id number]. Site :?1950 Study:?XRay-Extremity Left HUMERUS-05/29/2023 9:39:02 AM Ordering Physician:KESHAV Final Report: Indication: Fall Technique: Two views humerus Comparison: None Findings/Impression: No definite evidence of fracture. Anterior dislocation of the humerus at the level of the glenohumeral joint. Mild left acromioclavicular osteoarthritis. Dictated by Jerald Nagel MD @ 05/29/2023 9:42:31 AM Signed by:?Jerald Nagel MD @05/29/2023 9:42:31 AM (Electronic Signature)
--- NOTE | 2023-05-29 09:11 | XR_ITS ---
Patient: RAN BIANCHI Facility:?[facility] Patient ID:?[id number] Site Patient ID:?[id number] Site :?1950 Study:?XRay-Knee Left 2 view-05/29/2023 9:36:14 AM Ordering Physician:KESHAV Final Report: INDICATION: Fall. TECHNIQUE: Two views of the left knee. COMPARISON: None. FINDINGS: Osseous demineralization limits evaluation for nondisplaced fracture. No displaced fracture is visualized. Alignment is anatomic. Tricompartmental marginal osteophytes. Mild medial compartment joint space narrowing. No knee joint effusion. Mild prepatellar and calf soft tissue swelling. Atherosclerotic arterial calcifications. IMPRESSION: No displaced fracture. Dictated by Elsy Reyes MD @ 05/29/2023 9:39:38 AM Signed by:?Elsy Reyes MD @05/29/2023 9:39:38 AM (Electronic Signature)
[2023-05-29] MEDS: KETOROLAC 15 MG/ML inj IVP (09:16)
[2023-05-29] MEDS: ONDANSETRON 2 MG/ML inj 4 MG IVP (10:00)
[2023-05-29] MEDS: LORazepam 2 MG/ML inj 0.5 MG IVP (10:45)
--- NOTE | 2023-05-29 11:55 | W.ANESCHARGE ---
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
== END 2023-05-29 13:03 | disposition home or self-care (01) ==
PROVIDERS: Emergency Provider Family Medicine; PCP Family Medicine
DX: S43.015A Anterior dislocation of left humerus, initial encounter (principal); W01.0XXA Fall on same level from slipping, tripping and stumbling without subsequent striking against object, initial encounter; S80.02XA Contusion of left knee, initial encounter; S50.311A Abrasion of right elbow, initial encounter
CPT/HCPCS: 23655; 01620; 71045; 73020; 73060; 73560; 96374; 96375; 99140; 99284; J1885; J2060; J2405; J2704

== ENCOUNTER 2023-06-13 16:37 | Emergency (ER) | payer MEDICARE, SELFPAY ==
[2023-06-13 16:40] VITALS: BP 171/108; PULSE 65; RESP 16; TEMP 36.8; O2SAT 94; BMI 46.6
--- NOTE | 2023-06-13 16:48 | ED_ITS ---
HPI - General Adult General Time Seen by Provider: 16:48 Date Seen: 06/13/23 Chief complaint: Extremity Pain/Injury, Lower Stated complaint: Fell 2 weeks ago-was here-bruise hot and red L leg Time Seen by Provider: 06/13/23 16:40 Source: patient, RN notes reviewed and old records reviewed Mode of arrival: ambulatory Limitations: no limitations History of Present Illness HPI narrative: This 72-year-old female is coming in with increasing left leg pain, swelling redness. She had a fall and was evaluated in the ER on May 28. She reportedly had a contusion or abrasion below the left knee. She has seen Orthopedics for her left shoulder, is improving, will be starting physical therapy at some point. Over the weekend she noted increasing redness and swelling of this leg but no fevers. She had chills the other day but really has had no documented fevers and no increasing chills. She has not felt ill. Both legs have develop some swelling and she has started Lasix for this. However the left leg is more red, seems to be more swollen and feels more tender. There is site of prominent pain or tenderness where the area of bruising was. She is not on any blood thinners. Denies any difficulty breathing, no chest pain, no shortness of breath. Related Data Home Medications Medication Instructions Recorded Confirmed hydrochlorothiazide 12.5 mg tablet 12.5 mg PO DAILY 04/25/22 06/02/23 losartan 100 mg tablet 100 mg PO DAILY 04/25/22 06/02/23 omeprazole 20 mg capsule,delayed 20 mg PO DAILY 04/25/22 06/02/23 release rosuvastatin 5 mg tablet 5 mg PO DAILY 04/25/22 06/02/23 psyllium husk 0.4 gram capsule 0.8 g PO QDAY 06/02/23 06/02/23 (Fiber (psyllium husk)) vitamins A,C,V-jfzh-xxuiab 4,296 1 cap PO BID 06/02/23 06/02/23 mcg-226 mg-90 mg capsule (PreserVision AREDS) furosemide 20 mg tablet 20 mg PO QAM 06/13/23 06/13/23 Previous Rx's Medication Instructions Recorded cephalexin 500 mg tablet 500 mg PO TID #20 tabs 06/13/23 Allergies Allergy/AdvReac Type Severity Reaction Status Date / Time Sulfa (Sulfonamide Allergy Mild Hives Verified 06/02/23 10:19 Antibiotics) Opioids - Morphine Analogues Allergy vomiting Verified 06/02/23 10:19 Review of Systems Narrative: As per HPI. [facility] Medical History Infection due to severe acute respiratory syndrome coronavirus 2 (SARS-CoV-2) ?U07.1 - COVID-19 (ICD-10) Surgical History History of phacoemulsification of cataract of right eye with intraocular lens implantation (10/28/20) ?Z98.41 - Cataract extraction status, right eye (ICD-10) ?Z96.1 - Presence of intraocular lens (ICD-10) History of phacoemulsification of cataract of left eye with intraocular lens implantation (11/11/20) ?Z98.42 - Cataract extraction status, left eye (ICD-10) ?Z96.1 - Presence of intraocular lens (ICD-10) Social History Smoking Status: Light tobacco smoker Do you use any of these nicotine containing products: None Second hand tobacco smoke exposure: No How often do you have a drink containing alcohol: never AUDIT-C Alcohol total score: 0 Non-prescribed substance use: denies use Exam Const: Vital Signs, click to edit/add: Vital Signs - 24 hr 06/13/23 16:40 Temperature 98.3 F Pulse Rate [Pulse Oximeter] 65 Respiratory Rate 16 Blood Pressure [Ri ght Upper Arm] 171/108 H Pulse Oximetry 94 Oxygen Delivery Me thod Room Air This 72-year-old female is alert, interactive, no apparent distress. She has her left arm in a sling. Both lower extremities are exposed, seem to have similar in parents as far as edema. Her left leg has mild erythema below the knee down onto the dorsum of the foot. She has a central area below the left medial knee where you can see some resolving ecchymosis centrally and does have more intense erythema around this site. There is no fluctuance but there does seem to be tissue induration. She is seemingly more tender in this area. She does have pitting edema and has generalized tenderness throughout this lower extremity. I would say that she has a positive Homans sign. Lungs are clear, good air entry, no tachypnea. CV regular rate rhythm, no murmur, normal S1-S2, no S3-S4. Documenting provider has reviewed patient's vital signs: yes Course Course ED Course: Patient and I discussed ruling out venous occlusive disease with venous ultrasound. She does agree. If this is negative, she certainly could be developing some cellulitis and would recommend antibiotics. She is hemodynamically stable, afebrile and on and would think that she could trial oral outpatient antibiotics if we deemed this to be the appropriate course. Otherwise if she does have a DVT, will initiate anticoagulation. Will get baseline labs with a CBC to see where her white count is. Reevaluation(s) Time of Reevaluation #1: 18:27 Reevaluation #1: Reviewed labs and negative ultrasound for DVT with patient. We will initiate antibiotics. Will give her 1st dose of oral Keflex tonight, send in the rest the prescription. We will trial outpatient oral antibiotics for this patient, do not see need for hospitalization at this time. Patient does report that she has a pre scheduled outpatient follow-up visit for the lower extremity edema. Vital Signs Vital signs: Initial Vital Signs Temperature 98.3 F 06/13/23 16:40 Temperature Source Temporal Artery Scan 06/13/23 16:40 Pulse Rate 65 06/13/23 16:40 Respiratory Rate 16 06/13/23 16:40 Blood Pressure 171/108 H 06/13/23 16:40 Blood Pressure Mean 129 H 06/13/23 16:40 Blood Pressure Position Sitting 06/13/23 16:40 Pulse Oximetry 94 06/13/23 16:40 Oxygen Delivery Method Room Air 06/13/23 16:40 Vital Signs Temperature 98.3 F 06/13/23 16:40 Pulse Rate 65 06/13/23 16:40 Respiratory Rate 16 06/13/23 16:40 Blood Pressure 171/108 H 06/13/23 16:40 Pulse Oximetry 94 06/13/23 16:40 Oxygen Delivery Method Room Air 06/13/23 16:40 Temperature 98.3 F 06/13/23 16:40 Pulse Rate 65 06/13/23 16:40 Respiratory Rate 16 06/13/23 16:40 Blood Pressure 171/108 H 06/13/23 16:40 Pulse Oximetry 94 06/13/23 16:40 Oxygen Delivery Method Room Air 06/13/23 16:40 Medical Decision Making Lab Data Lab results reviewed: Yes I reviewed the patient's lab results Labs: Lab Results 06/13/23 Range/Units 17:39 WBC 3.70 L (4.50-11.00) K/uL RBC 3.97 L (4.00-5.20) m/uL Hgb 12.4 (12.0-16.0) gm/dL Hct 38.7 (33.0-51.0) % MCV 98 (80-100) fL MCH 31 (26-34) pg MCHC 32 (32-36) gm/dL RDW Coeff of Trip 13.1 (11.5-15.5) % Plt Count 213 (140-440) K/uL Neut % (Auto) 55.7 (42.0-72.0) % Lymph % (Auto) 27.3 (20-44) % Addison % (Auto) 11.6 H (0.0-11.0) % Eos % (Auto) 4.6 (0.0-7.0) % Baso % (Auto) 0.5 (0.0-3.0) % Neut # (Auto) 2.10 (1.7-7.0) K/uL Lymph # (Auto) 1.00 (0.90-2.90) K/uL Addison # (Auto) 0.40 (0.00-0.90) K/UL Eos # (Auto) 0.20 (0.00-0.50) K/uL Baso # (Auto) 0.00 (0.00-0.30) K/uL Abs Immat Gran (auto) 0.00 (0.00-0.30) K/uL Imm/Tot Granulo (auto) 0.3 % Sodium 138 (135-149) mmol/L Potassium 4.5 (3.6-5.1) mmol/L Chloride 102 (96-114) mmol/L Carbon Dioxide 33 H (20-32) mmol/L Anion Gap 3 L (7-15) mEq/L BUN 22 (7-30) mg/dL Creatinine 0.6 (0.5-1.5) mg/dL Estimated Creat Clear 46.43 Estimated GFR 96 ml/min Glucose 89 (60-115) mg/dL Calcium 9.4 (8.4-10.6) mg/dL C-Reactive Protein < 0.5 L (0.5-1.0) mg/dL Imaging Data Venous US: Attestation: I have reviewed the pertinent imaging results. Radiologist's impression: Patient: RAN BIANCHI Facility:?[facility] Patient ID:?[id number] Site Patient ID:?[id number]. Site :?1950 Study:?US Extremity LLE venous-06/13/2023 5:51:33 PM Ordering Physician:Karen Weiner Final Report: INDICATION: s/p fall x 2wks ago, persistent pain, redness, and swelling LT leg. TECHNIQUE: Ultrasound venous duplex lower left extremity. Compression venous exam was performed using bryan-scale, color Doppler, and spectral Doppler analysis. COMPARISON: None. FINDINGS: Deep veins: Sonographic imaging demonstrates the left common femoral, deep femoral, superficial femoral, popliteal, posterior tibial, peroneal and the contralateral right common femoral veins to be fully compressible with normal color Doppler blood flow. Superficial veins: Greater saphenous vein is fully compressible. No popliteal cyst. IMPRESSION: No deep venous thrombosis in the evaluated veins of the left lower extremity. Dictated by Victor Manuel Ly MD @ 06/13/2023 6:15:32 PM (Electronic Signature) Critical Care Time Critical Care Time Critical Care Time: No Discharge Plan Discharge Clinical Impression: Cellulitis Qualifiers: Site of cellulitis: extremity Site of cellulitis of extremity: lower extremity Laterality: left Qualified Code(s): L03.116 - Cellulitis of left lower limb Patient Disposition: Home, Self-Care Condition: Stable Instructions: Cellulitis (ED) Additional Instructions: Continue with Keflex as prescribed, next dose due tomorrow morning. Try to elevate this leg as much as possible, goal is to be at heart level for elevation. Use warm compresses on the leg or heating pad for the next few days. If you develop fever, feel that your leg is worsening, have further concerns, do recommend re-evaluation. Activity Level: Activity as Tolerated Prescriptions: New cephalexin 500 mg tablet 500 mg PO TID Qty: 20 0RF No Action psyllium husk [Fiber (psyllium husk)] 0.4 gram capsule 0.8 g PO QDAY hydrochlorothiazide 12.5 mg tablet 12.5 mg PO DAILY Patient Comments: TAKE ONE TABLET BY MOUTH EVERY DAY losartan 100 mg tablet 100 mg PO DAILY Patient Comments: TAKE ONE TABLET BY MOUTH EVERY DAY ALONG WITH THE HYDROCHLOROTHIAZIDE omeprazole 20 mg capsule,delayed release(DR/EC) 20 mg PO DAILY Patient Comments: TAKE ONE CAPSULE BY MOUTH EVERY DAY BEFORE A MEAL rosuvastatin 5 mg tablet 5 mg PO DAILY Patient Comments: TAKE ONE TABLET BY MOUTH AT BEDTIME PreserVision AREDS 4,296 mcg-226 mg-90 mg capsule 1 cap PO BID furosemide 20 mg tablet 20 mg PO QAM Follow Up/Referrals: Lindy Sr DO [Primary Care Provider] - Stand Alone [facility]
--- NOTE | 2023-06-13 16:51 | US_ITS ---
Patient: RAN BIANCHI Facility:?[facility] Patient ID:?[id number] Site Patient ID:?[id number]. Site :?[id number] Study:?US-Extremity LLE venous-06/13/2023 5:51:33 PM Ordering Physician:Karen Weiner Final Report: INDICATION: s/p fall x 2wks ago, persistent pain, redness, and swelling LT leg. TECHNIQUE: Ultrasound venous duplex lower left extremity. Compression venous exam was performed using bryan-scale, color Doppler, and spectral Doppler analysis. COMPARISON: None. FINDINGS: Deep veins: Sonographic imaging demonstrates the left common femoral, deep femoral, superficial femoral, popliteal, posterior tibial, peroneal and the contralateral right common femoral veins to be fully compressible with normal color Doppler blood flow. Superficial veins: Greater saphenous vein is fully compressible. No popliteal cyst. IMPRESSION: No deep venous thrombosis in the evaluated veins of the left lower extremity. Dictated by Victor Manuel Ly MD @ 06/13/2023 6:15:32 PM Signed by:?Victor Manuel Ly MD @06/13/2023 6:15:32 PM (Electronic Signature)
[2023-06-13 17:45] LABS: Basophils Percent Auto 0.5 % (0.0-3.0); Eosinophils Percent Auto 4.6 % (0.0-7.0); Hematocrit 38.7 % (33.0-51.0); Hemoglobin* 12.4 gm/dL (12.0-16.0); Immature Granulocytes Pct Auto 0.3 %; Lymphocytes Percent Auto 27.3 % (20-44); Mean Corpuscular HGB Conc 32 gm/dL (32-36); Mean Corpuscular Hemoglobin 31 pg (26-34); Mean Corpuscular Volume 98 fL (80-100); Monocytes Percent Auto 11.6 % (0.0-11.0); Neutrophils Percent Auto 55.7 % (42.0-72.0); Platelet Count* 213 K/uL (140-440); RDW Coefficient of Variation % 13.1 % (11.5-15.5); Red Blood Count 3.97 m/uL (4.00-5.20)
[2023-06-13 17:48] LABS: Slide Review Reflex No
[2023-06-13 18:00] LABS: Chloride* 102 mmol/L (96-114)
[2023-06-13 18:01] LABS: Potassium* 4.5 mmol/L (3.6-5.1); Sodium* 138 mmol/L (135-149)
[2023-06-13 18:03] LABS: Creatinine* 0.6 mg/dL (0.5-1.5); Est. Creatinine Clearance* 46.43; Estimated Glomerular Filt Rate 96 ml/min
[2023-06-13 18:04] LABS: Anion Gap 3 mEq/L (7-15); Blood Urea Nitrogen* 22 mg/dL (7-30); Calcium* 9.4 mg/dL (8.4-10.6); Carbon Dioxide* 33 mmol/L (20-32); Glucose* 89 mg/dL (60-115)
[2023-06-13 18:07] LABS: C Reactive Protein* < 0.5 mg/dL (0.5-1.0)
[2023-06-13] MEDS: cephALEXin 500 MG CAPSULE PO (18:35)
== END 2023-06-13 18:38 | disposition home or self-care (01) ==
PROVIDERS: Emergency Provider Family Medicine; PCP Family Medicine
DX: L03.116 Cellulitis of left lower limb (principal)
CPT/HCPCS: 36415; 80048; 85025; 86140; 93971; 99283; 99284; A9270

== ENCOUNTER 2023-06-15 14:07 | Observation (INO) | payer MEDICARE, SELFPAY ==
[2023-06-15] VITALS (12 sets, daily range): BP systolic 122–186; BP diastolic 66–112; PULSE 58–75; RESP 12–94; TEMP 36.6–36.8; O2SAT 91–96; BMI 46.6; BMI 49.3
--- NOTE | 2023-06-15 14:26 | ED.GENADULT ---
HPI - General Adult General Date Seen: 06/15/23 Chief complaint: Extremity Pain/Injury, Lower Stated complaint: Left leg pain Time Seen by Provider: 06/15/23 14:21 History of Present Illness HPI narrative: This is a 72-year-old female returning to the ER today for evaluation of left leg pain , swelling, and redness. Patient reports that she met a can a cool fall few weeks ago leading to a bruise on her left anteromedial proximal tibia just distal to the knee as well as a dislocation of her left shoulder (still wearing a sling and doing rehab for that). A few days ago she noticed some redness and swelling increasing in both of her lower extremity so her doctor put her on Lasix. The swelling really has not are to get better yet. Two days ago she was noticing redness and discoloration of the left evans so seen here in the ER. Review of medical record: Was seen in the ER 06/06 6-2 days ago. She had fallen on May 28, about 2 weeks ago with contusion an abrasion below her left knee. DVT ultrasound was negative. Labs showed WBC 3.7, hemoglobin 12.4, platelet count 213. Discharged with cephalexin. She has been taking the cephalexin since then. The redness has been a little bit waxing and waning but on the whole has spread significantly. She now has redness from the dorsum of her foot from the toes all the way proximally up to her ankle on the anterior aspect and past the ankle onto distal/medial left thigh. Her leg is increasingly tight in feels swollen. She has also had some chills and subjective fevers. No objective fevers. No cough. No chest pain. No shortness of breath. No redness of the right leg. She is not diabetic. No history of cancer or chemotherapy. She does note that she has a ?weak? immune system. She has history of psoriasis but is not on any immunosuppressive spirit Related Data Home Medications Medication Instructions Recorded Confirmed hydrochlorothiazide 12.5 mg tablet 12.5 mg PO DAILY 04/25/22 06/15/23 losartan 100 mg tablet 100 mg PO DAILY 04/25/22 06/15/23 omeprazole 20 mg capsule,delayed 20 mg PO DAILY 04/25/22 06/15/23 release rosuvastatin 5 mg tablet 5 mg PO DAILY 04/25/22 06/15/23 psyllium husk 0.4 gram capsule 0.8 g PO DAILY 06/02/23 06/15/23 (Fiber (psyllium husk)) vitamins A,C,D-xfhm-rfygqa 4,296 1 cap PO BID 06/02/23 06/15/23 mcg-226 mg-90 mg capsule (PreserVision AREDS) furosemide 20 mg tablet 20 mg PO QAM 06/13/23 06/15/23 Previous Rx's Medication Instructions Recorded cephalexin 500 mg tablet 500 mg PO TID #20 tabs 06/13/23 Allergies Allergy/AdvReac Type Severity Reaction Status Date / Time Sulfa (Sulfonamide Allergy Mild Hives Verified 06/02/23 10:19 Antibiotics) Opioids - Morphine Analogues Allergy vomiting Verified 06/02/23 10:19 [facility] Medical History GERD (gastroesophageal reflux disease) ?K21.9 - Gastro-esophageal reflux disease without esophagitis (ICD-10) Hyperlipidemia ?E78.5 - Hyperlipidemia, unspecified (ICD-10) Hypertension ?I10 - Essential (primary) hypertension (ICD-10) Infection due to severe acute respiratory syndrome coronavirus 2 (SARS-CoV-2) ?U07.1 - COVID-19 (ICD-10) Surgical History History of phacoemulsification of cataract of right eye with intraocular lens implantation (10/28/20) ?Z98.41 - Cataract extraction status, right eye (ICD-10) ?Z96.1 - Presence of intraocular lens (ICD-10) History of phacoemulsification of cataract of left eye with intraocular lens implantation (11/11/20) ?Z98.42 - Cataract extraction status, left eye (ICD-10) ?Z96.1 - Presence of intraocular lens (ICD-10) Social History What is your current living situation?: I presently have a place to live Problems where you live: no known problems Problems where you live details: n/a In the past 12 months, utilities in danger of being shut off: no In past 12 months, lack of transportation kept you from medical appts, meetings, work, or getting things needed for daily living: no In the past 12 mos, have been you worried that your food would run out before you had money to buy more?: never true In the past 12 mos, the food you bought just didn't last and you didn't have money to buy more?: never true Highest level of school completed/degree received: high school graduate Smoking Status: Light tobacco smoker What tobacco products do you use: cigarettes Do you use any of these nicotine containing products: None Second hand tobacco smoke exposure: No How often do you have a drink containing alcohol: monthly or less AUDIT-C Alcohol total score: 1 Non-prescribed substance use: denies use Caffeine: Yes How often does anyone, including family, friends and others, physically hurt you: never How often does anyone, including family, friends and others, insult or talk down to you: never How often does anyone, including family, friends and others, threaten you with harm: never How often does anyone, including family, friends and others, scream or curse at you: never service: No Exam Narrative: Exam Narrative: Constitutional: Appears well-developed and well-nourished. Alert. Conversant. Non toxic. HENT: Head: Atraumatic. Nose: Nose normal. Mouth/Throat: Oral mucosa is clear and moist. no trismus. Pharynx normal. Tonsils symmetric. No tonsillar enlargement, erythema, or exudate. Eyes: Conjunctivae normal. EOM normal. Pupils equal, round, and reactive to light. No scleral icterus. Neck: Normal range of motion. Neck supple. No tracheal deviation present. Cardiovascular: Normal rate, regular rhythm. No gallop. No friction rub. No murmur heard. Symmetric radial and PT/DP artery pulses . Normal cap refill in both feet. Pulmonary/Chest: Effort normal. No stridor. No respiratory distress. No wheezes. No rales. No rhonchi . Abdominal: Soft. Bowel sounds normal. No distension. No mass. No tenderness. No rebound. No guarding. Musculoskeletal: RUE: Normal range of motion. No tenderness. No deformity LUE: Shoulder sling. Range of motion limited by a healing shoulder dislocation. RLE: Normal range of motion. 1+ edema. No tenderness. No deformity LLE: Normal range of motion in her hip, knee, ankle, toes. 2+ edema. Erythema and warmth affecting the dorsum of the foot the entire anterior evans all the way to the knee on the medial evans all the way past the knee to the medial distal thigh and a little bit of erythema posteriorly. Mild tenderness. There is an area of increased swelling and induration on the anterior 1/4 of the medial evans on the proximal/medial tibia. No definite fluctuance or soft tissue. No laxity of the soft tissue to suggest MLL. No crepitus or palpable gas in the soft tissue. Knee and patella are nontender. There is an irregularly shaped small 0.5 x 1.5 area of scaliness on the skin just distal to the patella on the anterior knee. Could be a healing abrasion from when she fell a few weeks ago or could be a very small, mild plaque psoriasis. No deformity Lymph: Redness from the foot all the way up to the knee and medial distal thigh. No other ascending lymphangitis or extension redness up the thigh. Neurological: Alert and oriented to person, place, and time. Normal strength. CN II-VII intact. No sensory deficit. GCS eye subscore is 4. GCS verbal subscore is 5. GCS motor subscore is 6. Normal coordination Skin: Skin is warm and dry. No rash noted. No pallor. Normal capillary refill. Psychiatric: Normal mood. Normal affect. Const: Vital Signs, click to edit/add: Vital Signs - 24 hr 06/15/23 14:16 06/15/23 17:03 06/15/23 17:32 Temperature 97.9 F Pulse Rate 61 65 Pulse Rate [Pulse Oximeter] 75 Respiratory Rate 16 14 12 Blood Pressure 147/87 H 158/85 H Blood Pressure [Ri ght Upper Arm] 143/89 H Pulse Oximetry 92 93 92 Oxygen Delivery Me thod Room Air 06/15/23 18:05 06/15/23 18:32 06/15/23 19:02 Temperature Pulse Rate 62 61 58 L Pulse Rate [Pulse Oximeter] Respiratory Rate 14 14 18 Blood Pressure 140/74 H 126/66 140/82 H Blood Pressure [Ri ght Upper Arm] Pulse Oximetry 96 94 91 Oxygen Delivery Me thod Course Vital Signs Vital signs: Initial Vital Signs Temperature 97.9 F 06/15/23 14:16 Temperature Source Oral 06/15/23 14:16 Pulse Rate 75 06/15/23 14:16 Respiratory Rate 16 06/15/23 14:16 Blood Pressure 143/89 H 06/15/23 14:16 Blood Pressure Mean 107 H 06/15/23 14:16 Blood Pressure Position Sitting 06/15/23 14:16 Pulse Oximetry 92 06/15/23 14:16 Oxygen Delivery Method Room Air 06/15/23 14:16 Vital Signs Temperature 97.9 F 06/15/23 14:16 Pulse Rate 75 06/15/23 14:16 Respiratory Rate 16 06/15/23 14:16 Blood Pressure 143/89 H 06/15/23 14:16 Pulse Oximetry 92 06/15/23 14:16 Oxygen Delivery Method Room Air 06/15/23 14:16 Temperature 98.2 F 06/15/23 19:12 Pulse Rate 63 06/15/23 19:12 Respiratory Rate 94 H 06/15/23 19:12 Blood Pressure 186/112 H 06/15/23 19:12 Pulse Oximetry 94 06/15/23 19:12 Oxygen Delivery Method Room Air 06/15/23 19:12 Medications Administered Medications: Generic Name Dose Route Start Last Admin Trade Name Freq PRN Reason Stop Dose Admin Acetaminophen 1,000 mg 06/15/23 19:30 06/15/23 20:09 Acetaminophen 325 Mg Tablet PO 975 mg Q6H JUANCARLOS Administration Enoxaparin Sodium 30 mg 06/15/23 19:30 06/15/23 20:10 Enoxaparin 30 Mg/0.3ml Inj SUBCUT 30 mg Q24H JUANCARLOS Administration Ibuprofen 600 mg 06/15/23 19:35 06/15/23 20:10 Ibuprofen 400 Mg Tablet PO 600 mg TIDWM JUANCARLOS Administration Sodium Chloride 5 ml 06/15/23 21:00 06/15/23 20:11 Sodium Chloride 0.9 % (Flush) 10 Ml Syringe IVF 5 ml BID JUANCARLOS Administration Discontinued Medications Generic Name Dose Route Start Last Admin Trade Name Freq PRN Reason Stop Dose Admin Vancomycin HCl 2,000 mg/ 520 mls @ 260 mls/hr 06/15/23 15:00 06/15/23 18:11 Sodium Chloride IVPB 06/15/23 15:01 Infused ONCE ONE Infusion Protocol Medical Decision Making MDM Narrative Medical decision making narrative: This patient presents for evaluation of spreading warmth and skin redness affecting her left lower extremity from the foot all the way up to the knee and just onto the distal portion of her medial thigh.. The history, physical exam is consistent with cellulitis. There do not appear at this time to be any complication of cellulitis including abscess, necrotizing fascitis, lymphangitis, lymphadenitis, osteomyelitis, sepsis, or shock. CT negative for any fluid collection, abscess, gas in the soft tissue, or Keenan Mariaelena lesion. The patient is not immunosuppressed or diabetic, but she does have psoriasis. She has already been on 3 days of outpatient cephalexin and is getting worse. Although labs are reassuring and there is no evidence for any sepsis or shock, I do think she is to be admitted for IV antibiotics to help get this cellulitis to improved. Discussed with our hospitalist, Brianda Encinas who accepts for admission. Vancomycin administered here in the ER. Lab Data Labs: Lab Results 06/15/23 Range/Units 15:25 WBC 3.79 L (4.50-11.00) K/uL RBC 4.20 (4.00-5.20) m/uL Hgb 13.2 (12.0-16.0) gm/dL Hct 40.8 (33.0-51.0) % MCV 97 (80-100) fL MCH 31 (26-34) pg MCHC 32 (32-36) gm/dL RDW Coeff of Trip 13.0 (11.5-15.5) % Plt Count 200 (140-440) K/uL Neut % (Auto) 67.8 (42.0-72.0) % Lymph % (Auto) 15.8 L (20-44) % [place] % (Auto) 11.1 H (0.0-11.0) % Eos % (Auto) 4.7 (0.0-7.0) % Baso % (Auto) 0.3 (0.0-3.0) % Neut # (Auto) 2.60 (1.7-7.0) K/uL Lymph # (Auto) 0.60 L (0.90-2.90) K/uL [place] # (Auto) 0.40 (0.00-0.90) K/UL Eos # (Auto) 0.20 (0.00-0.50) K/uL Baso # (Auto) 0.00 (0.00-0.30) K/uL Abs Immat Gran (auto) 0.00 (0.00-0.30) K/uL Imm/Tot Granulo (auto) 0.3 % Sodium 139 (135-149) mmol/L Potassium 4.0 (3.6-5.1) mmol/L Chloride 102 (96-114) mmol/L Carbon Dioxide 33 H (20-32) mmol/L Anion Gap 4 L (7-15) mEq/L BUN 17 (7-30) mg/dL Creatinine 0.6 (0.5-1.5) mg/dL Estimated Creat Clear 46.43 Estimated GFR 96 ml/min Glucose 80 (60-115) mg/dL Lactate 1.0 (0.5-1.9) mmol/L Calcium 9.4 (8.4-10.6) mg/dL Imaging Data CT L LE: Attestation: I have reviewed the pertinent imaging results. Radiologist's impression: Impression: Generalized superficial edema without a focal defined fluid collection. Discharge Plan Discharge Clinical Impression: Cellulitis Patient Disposition: Admitted As Observation
--- NOTE | 2023-06-15 15:00 | CT_ITS ---
Patient: RAN BIANCHI Facility:?[facility] Patient ID:?[id number] Site Patient ID:?[id number]. Site :?1950 Study:?CT-Extremity Left TIB/FIB W/ISOVUE 370 137CC-06/15/2023 3:51:54 PM Ordering Physician:MYRNA Final Report: Indication: Leg redness and swelling. Technique: CT extremity left tibia and fibula with 137 cc Isovue 370 IV contrast. Comparison: None. Findings: There is generalized superficial edema which is most prevalent between the patella and tibial tubercle. No defined fluid collection. No abscess. No osteomyelitis or other significant osseous abnormality. Impression: Generalized superficial edema without a focal defined fluid collection. Please note that all CT scans at this facility use dose modulation, iterative reconstruction, and/or weight-based dosing when appropriate to reduce radiation dose to as low as reasonably achievable. Dictated by Juan Waldron MD @ 06/15/2023 6:11:29 PM Signed by:?Juan Waldron MD @06/15/2023 6:11:29 PM (Electronic Signature)
[2023-06-15 15:35] LABS: Basophils Percent Auto 0.3 % (0.0-3.0); Eosinophils Percent Auto 4.7 % (0.0-7.0); Hematocrit 40.8 % (33.0-51.0); Hemoglobin* 13.2 gm/dL (12.0-16.0); Immature Granulocytes Pct Auto 0.3 %; Lymphocytes Percent Auto 15.8 % (20-44); Mean Corpuscular HGB Conc 32 gm/dL (32-36); Mean Corpuscular Hemoglobin 31 pg (26-34); Mean Corpuscular Volume 97 fL (80-100); Monocytes Percent Auto 11.1 % (0.0-11.0); Neutrophils Percent Auto 67.8 % (42.0-72.0); Platelet Count* 200 K/uL (140-440); White Blood Count* 3.79 K/uL (4.50-11.00)
[2023-06-15 15:40] LABS: Slide Review Reflex No
[2023-06-15 15:48] LABS: Chloride* 102 mmol/L (96-114); Sodium* 139 mmol/L (135-149)
[2023-06-15 15:51] LABS: Anion Gap 4 mEq/L (7-15); Blood Urea Nitrogen* 17 mg/dL (7-30); Carbon Dioxide* 33 mmol/L (20-32); Creatinine* 0.6 mg/dL (0.5-1.5); Est. Creatinine Clearance* 46.43; Estimated Glomerular Filt Rate 96 ml/min; Glucose* 80 mg/dL (60-115)
[2023-06-15 15:52] LABS: Calcium* 9.4 mg/dL (8.4-10.6)
--- NOTE | 2023-06-15 18:48 | P.IMHP_ITS ---
Hospitalist- H&P: HPI History of Present Illness Date Seen: 06/15/23 Chief complaint: Left leg pain Narrative: Marylin Casillas is a 72 year old female past medical history significant for hypertension, hyperlipidemia, GERD is admitted to the medical floor from the ED for further management left lower extremity cellulitis following failed outpatient therapy. Patient reports slipping and falling on a deck on 05/29/2023, sustaining a left anterior shoulder dislocation which was reduced in the ED, currently managed in a sling, a left lower extremity contusion, and a right elbow contusion. She had a follow-up visit in the orthopedic clinic on 06/02/2023. Approximately 1 week ago patient began having increased swelling of the left lower extremity. She was started on Lasix. Her HCTZ has been held. Bruising has evolved. In the last several days, left lower extremity has been noted to be more red and warm to touch. She was seen in the ED on 06/12 where a venous ultrasound was negative for DVT. She was placed on cephalexin for a suspected cellulitis. She returns to the ED with increasing swelling, redness and pain. Denies recent headaches or dizziness. Denies recent fevers or malaise. Denies chest pain or shortness of breath. Denies nausea, vomiting. Denies change in bowels or urination. She lives in her own home with her . She is a social smoker. Rare alcohol use. Review of Systems Narrative: REVIEW OF SYSTEMS: Complete review of systems performed and negative unless otherwise stated in HPI or below. [facility] Medical History GERD (gastroesophageal reflux disease) ?K21.9 - Gastro-esophageal reflux disease without esophagitis (ICD-10) Hyperlipidemia ?E78.5 - Hyperlipidemia, unspecified (ICD-10) Hypertension ?I10 - Essential (primary) hypertension (ICD-10) Infection due to severe acute respiratory syndrome coronavirus 2 (SARS-CoV-2) ?U07.1 - COVID-19 (ICD-10) Surgical History History of phacoemulsification of cataract of right eye with intraocular lens implantation (10/28/20) ?Z98.41 - Cataract extraction status, right eye (ICD-10) ?Z96.1 - Presence of intraocular lens (ICD-10) History of phacoemulsification of cataract of left eye with intraocular lens implantation (11/11/20) ?Z98.42 - Cataract extraction status, left eye (ICD-10) ?Z96.1 - Presence of intraocular lens (ICD-10) Social History Smoking Status: Light tobacco smoker Do you use any of these nicotine containing products: None Second hand tobacco smoke exposure: No How often do you have a drink containing alcohol: never AUDIT-C Alcohol total score: 0 Non-prescribed substance use: denies use Meds Home Medications and Allergies Home Medications Medication Instructions Recorded Confirmed Type hydrochlorothiazide 12.5 mg tablet 12.5 mg PO DAILY 04/25/22 06/15/23 History losartan 100 mg tablet 100 mg PO DAILY 04/25/22 06/15/23 History omeprazole 20 mg capsule,delayed 20 mg PO DAILY 04/25/22 06/15/23 History release rosuvastatin 5 mg tablet 5 mg PO DAILY 04/25/22 06/15/23 History psyllium husk 0.4 gram capsule 0.8 g PO DAILY 06/02/23 06/15/23 History (Fiber (psyllium husk)) vitamins A,C,H-ptvt-fkbrig 4,296 1 cap PO BID 06/02/23 06/15/23 History mcg-226 mg-90 mg capsule (PreserVision AREDS) furosemide 20 mg tablet 20 mg PO QAM 06/13/23 06/15/23 History Allergies Allergy/AdvReac Type Severity Reaction Status Date / Time Sulfa (Sulfonamide Allergy Mild Hives Verified 06/02/23 10:19 Antibiotics) Opioids - Morphine Analogues Allergy vomiting Verified 06/02/23 10:19 Exam Narrative: Exam Narrative: PHYSICAL EXAM General: Pleasant, conversant, NAD HEENT: Normocephalic, atraumatic, sclera white, EOMI, oral mucosa moist Cardiovascular: RRR, S1S2 Pulmonary: CTA bilaterally without rhonchi, rales, expiratory wheezes. No dyspnea on room air Abdominal: Soft, obese, nondistended, NTTP Neurological: Alert, answering questions appropriately, cranial nerves intact, no focal findings Extremities: LLE with moderate edema, bright diffuse erythema from the distal knee through the foot. Warm to touch, however not significantly different than the RLE currently. Skin appears intact without obvious open wound, bleeding, or drainage. Range of motion intact other than limited from pain and swelling. LUE with sling. Neurovascularly intact. RLE with edema. Skin: Warm, dry. Const: Vital Signs, click to edit/add: Vital Signs - 24 hr 06/15/23 14:16 Temperature 97.9 F Pulse Rate [Pulse Oximeter] 75 Respiratory Rate 16 Blood Pressure [Ri ght Upper Arm] 143/89 H Pulse Oximetry 92 Oxygen Delivery Me thod Room Air Hospitalist - H&P: Result Labs Labs: Short CBC 06/15/23 Range/Units 15:25 WBC 3.79 L (4.50-11.00) K/uL Hgb 13.2 (12.0-16.0) gm/dL Hct 40.8 (33.0-51.0) % Plt Count 200 (140-440) K/uL BMP 06/15/23 15:25 Sodium 139 Potassium 4.0 Chloride 102 Carbon Dioxide 33 H BUN 17 Creatinine 0.6 Glucose [address] LLE: Attestation: I have reviewed the pertinent imaging results. Radiologist's impression: Indication: Leg redness and swelling. Technique: CT extremity left tibia and fibula with 137 cc Isovue 370 IV contrast. Comparison: None. Findings: There is generalized superficial edema which is most prevalent between the patella and tibial tubercle. No defined fluid collection. No abscess. No osteomyelitis or other significant osseous abnormality. Impression: Generalized superficial edema without a focal defined fluid collection. Venous US: Attestation: I have reviewed the pertinent imaging results. Radiologist's impression: 06/13/2023 INDICATION: s/p fall x 2wks ago, persistent pain, redness, and swelling LT leg. TECHNIQUE: Ultrasound venous duplex lower left extremity. Compression venous exam was performed using bryan-scale, color Doppler, and spectral Doppler analysis. COMPARISON: None. FINDINGS: Deep veins: Sonographic imaging demonstrates the left common femoral, deep femoral, superficial femoral, popliteal, posterior tibial, peroneal and the contralateral right common femoral veins to be fully compressible with normal color Doppler blood flow. Superficial veins: Greater saphenous vein is fully compressible. No popliteal cyst. IMPRESSION: No deep venous thrombosis in the evaluated veins of the left lower extremity. Assessment and Plan Assessment and plan (1) Cellulitis: Problem comment: Suspected, status post fall, failed outpatient therapy with oral cephalexin DDX: Cellulitis, compartment syndrome, necrotizing soft tissue infection, abscess/pyomyositis, DVT No systemic signs currently. Skin intact, no drainage. CT scan shows generalized superficial edema which is most prevalent between the patella and tibial tubercle. No defined fluid collection. No abscess. No os teomyelitis or other significant osseous abnormality. Venous ultrasound 06/13/2023 negative for DVT No leukocytosis, lactate 1.0, BC x2 pending Started on cephalexin 06/13/2023 Continue vancomycin as initiated in ED, given failed trial of cephalosporin Status: Acute (2) Status post fall: Problem comment: DOI: 05/29/2023 Sustained anterior dislocation of left shoulder, contusion of left knee, abrasion right elbow Had outpatient follow-up in orthopedic clinic on 06/02/2023 Status: Acute (3) Anterior shoulder dislocation: Problem comment: Left, status post fall 05/28 Sling for healing. Pain management as needed Status: Acute (4) Hypertension: Problem comment: Continue losartan. HCTZ held, instead has been started on Lasix Status: Chronic (5) Hyperlipidemia: Problem comment: Continue statin Status: Chronic Total Time Spent Total Time Spent: Total time spent caring for the patient today was 60 minutes. This includes time spent for the visit reviewing the chart, time spent during the visit, time spent after the visit and documentation and planning in coordination of care.
[2023-06-15] MEDS: ACETAMINOPHEN 325 MG TABLET 1000 MG PO (20:09)
[2023-06-15] MEDS: IBUPROFEN 400 MG TABLET 600 MG PO (20:10)
[2023-06-15] MEDS: ENOXAPARIN 30 MG/0.3ML INJ SUBCUT (20:10)
[2023-06-15] MEDS: SODIUM CHLORIDE 0.9 % (FLUSH) 10 ML SYRINGE 5 ML IVF (20:11)
[2023-06-16] VITALS (7 sets, daily range): BP systolic 133–159; BP diastolic 79–94; PULSE 57–69; RESP 16–22; TEMP 36.6–37.3; O2SAT 90–95
[2023-06-16] MEDS: ACETAMINOPHEN 325 MG TABLET 1000 MG PO ×2 (01:53→07:53)
--- NOTE | 2023-06-16 06:34 | PC.NURSE ---
End of shift [id number]: Arrived to floor at 1900. A&O pleasant and cooperative. VSS w/ sats 90% on RA. BLE edema. Left leg pink and warm to touch. Rating pain 5-6/10. Scheduled medication given. Sleeping upon reassessments. Pt has dislocated left shoulder. Sling removed per pt and arm propped up on pillow. SBA. Using call light appropriately.
[2023-06-16 06:40] LABS: Hematocrit 37.2 % (33.0-51.0); Mean Corpuscular HGB Conc 32 gm/dL (32-36); Mean Corpuscular Hemoglobin 31 pg (26-34); Mean Corpuscular Volume 97 fL (80-100); Platelet Count* 195 K/uL (140-440); Red Blood Count 3.83 m/uL (4.00-5.20); White Blood Count* 2.98 K/uL (4.50-11.00)
[2023-06-16 06:51] LABS: Slide Review Reflex No
[2023-06-16 07:09] LABS: Chloride* 105 mmol/L (96-114); Sodium* 139 mmol/L (135-149)
[2023-06-16 07:12] LABS: Anion Gap 2 mEq/L (7-15); Blood Urea Nitrogen* 16 mg/dL (7-30); Carbon Dioxide* 32 mmol/L (20-32); Creatinine* 0.6 mg/dL (0.5-1.5); Est. Creatinine Clearance* 46.43; Estimated Glomerular Filt Rate 96 ml/min
[2023-06-16 07:13] LABS: Calcium* 8.8 mg/dL (8.4-10.6); Glucose* 95 mg/dL (60-115)
[2023-06-16 07:24] LABS: C Reactive Protein* < 0.5 mg/dL (0.5-1.0)
[2023-06-16] MEDS: ROSUVASTATIN CALCIUM 10 MG TABLET 5 MG PO (08:59)
[2023-06-16] MEDS: LOSARTAN POTASSIUM 50 MG TABLET 100 MG PO (09:00)
[2023-06-16] MEDS: FUROSEMIDE 20 MG TABLET PO (09:00)
[2023-06-16] MEDS: SODIUM CHLORIDE 0.9 % (FLUSH) 10 ML SYRINGE 5 ML IVF ×2 (09:00→20:47)
[2023-06-16] MEDS: OMEPRAZOLE 20 MG CAPSULE DR PO (09:00)
[2023-06-16] MEDS: IBUPROFEN 400 MG TABLET 600 MG PO (09:33)
--- NOTE | 2023-06-16 10:01 | P.IMPN_ITS ---
Progress Note: A&P Assessment and plan (1) Cellulitis: Problem details: 06/14: - Suspected, status post fall, failed outpatient therapy with oral cephalexin (started 06/13/2023) - DDX: Cellulitis, compartment syndrome, necrotizing soft tissue infection, abscess/pyomyositis, DVT - No systemic signs currently. Skin intact, no drainage. - CT scan shows generalized superficial edema which is most prevalent between the patella and tibial tubercle. No defined fluid collection. No abscess. No ost eomyelitis or other significant osseous abnormality. - Venous ultrasound 06/13/2023 negative for DVT - No leukocytosis, lactate 1.0, BC x2 pending - Vancomycin started 06/15/23 - 06/16/23 - She never had fever, WBC have been normal/low, and all CRPs have been <0.5. Leg is red and swollen globally below knee, but not warm. I think it?s just skin changes from swelling. She has not been elevating it, so I discussed that at length with her, and I spoke with her nurse about it. If she?s better tomorrow, she could go home. Status: Acute (2) Anterior shoulder dislocation: Problem details: Left, status post fall 05/28 Sling for healing. Pain management as needed - F/u with ortho as previously scheduled (in about 4-5 weeks) Status: Acute (3) Status post fall: Problem details: DOI: 05/29/2023 Sustained anterior dislocation of left shoulder, contusion of left knee, abrasion right elbow Had outpatient follow-up in orthopedic clinic on 06/02/2023 Status: Acute (4) Hyperlipidemia: Problem details: Continue statin Status: Chronic (5) Hypertension: Problem details: Continue losartan. HCTZ held, instead has been started on Lasix Status: Chronic (6) Adjustment disorder with depressed mood: Problem details: Start celexa today 06/16/23 Status: Acute Subjective Time Seen by Provider: 09:45 Date Seen: 06/16/23 Interval history: This is a 72-year-old female who was admitted yesterday for the concern of possible left lower extremity cellulitis. She had a fall on 05/29/2023 that resulted in a left anterior shoulder dislocation and large left knee bruise. Left shoulder was relocated and she saw Dr. Atkinson on 06/02/2023 who recommended nonoperative treatment and a sling as needed along with follow-up imaging in 6 weeks. Her left shoulder has been doing fairly well, but she noticed that in the last few days her left lower extremity has become much more swollen below the knee and bright red. She was started on Keflex on 06/13/2023 for the concern of possible cellulitis. Yesterday she came back to the emergency room because leg was more swollen and red and she was concerned it was not getting better. She was admitted overnight now on vancomycin. Of note she has never had a fever, elevated white count, or any elevation of her CRP. While we are talking, Marylin Ashford became tearful several times and noted that her mental health has not been good lately. She talks about having gained weight over the last few years, and had a lot happen the last few weeks that has caused her half to care for her. He is still working as well and she worries about being a burden on him. He did come in later in the morning and I went back and met with him and Marylin Ashford again briefly. Her seemed very supportive of her. They both noted that she has been depressed in the last few weeks and she noted that she has been crying several times a day for those weeks as well. She is agreeable to try an SSRI. Exam Narrative: Exam Narrative: General: Tearful, otherwise in no acute distress. Awake, alert, oriented. No pallor. No jaundice. Oropharynx: Clear. Mucous membranes moist. Cardiovascular: Regular rate and rhythm. No murmurs, gallops, or rubs. Respiratory: Clear to auscultation bilaterally. No wheezes or crackles. Abdomen: Bowel sounds present. Soft, nondistended, nontender. Extremities: Right lower extremity is without erythema or edema. Large area of ecchymosis just inferior to the medial left knee. No abrasions or open wounds. Left lower extremity has 3+ nonpitting edema diffuse shiny bright erythema, blanches. This is global and not well demarcated. He left lower extremity is not more warm than the right lower extremity. The area is nontender to palpation. She is sitting up in the recliner with her legs in the dependent position. Const: Vital Signs, click to edit/add: Vital Signs - 24 hr 06/15/23 14:16 06/15/23 17:03 06/15/23 17:32 Temperature 97.9 F Pulse Rate 61 65 Pulse Rate [Pulse Oximeter] 75 Respiratory Rate 16 14 12 Blood Pressure 147/87 H 158/85 H Blood Pressure [Ri ght Arm] Blood Pressure [Ri ght Upper Arm] 143/89 H Pulse Oximetry 92 93 92 Oxygen Delivery Me thod Room Air 06/15/23 18:05 06/15/23 18:32 06/15/23 19:02 Temperature Pulse Rate 62 61 58 L Pulse Rate [Pulse Oximeter] Respiratory Rate 14 14 18 Blood Pressure 140/74 H 126/66 140/82 H Blood Pressure [Ri ght Arm] Blood Pressure [Ri ght Upper Arm] Pulse Oximetry 96 94 91 Oxygen Delivery Me thod 06/15/23 19:09 06/15/23 19:12 06/15/23 21:00 Temperature 97.9 F 98.2 F Pulse Rate Pulse Rate [Pulse Oximeter] 75 63 Respiratory Rate 18 94 H Blood Pressure Blood Pressure [Ri ght Arm] 186/112 H 132/83 Blood Pressure [Ri ght Upper Arm] 143/89 H Pulse Oximetry 94 Oxygen Delivery Me thod Room Air 06/15/23 21:34 06/15/23 22:54 06/15/23 23:20 Temperature 98.1 F Pulse Rate 69 Pulse Rate [Pulse Oximeter] 67 Respiratory Rate 18 16 Blood Pressure Blood Pressure [Ri ght Arm] 122/95 H Blood Pressure [Ri ght Upper Arm] Pulse Oximetry 94 93 Oxygen Delivery Me thod Room Air Room Air 06/16/23 02:56 06/16/23 07:00 06/16/23 07:00 Temperature 97.9 F 98.2 F Pulse Rate Pulse Rate [Pulse Oximeter] 64 66 66 Respiratory Rate 18 18 18 Blood Pressure Blood Pressure [Ri ght Arm] 133/79 142/91 H Blood Pressure [Ri ght Upper Arm] Pulse Oximetry 92 90 Oxygen Delivery Me thod Room Air Labs Labs: Laboratory Results - last 24 hr 06/15/23 06/16/23 15:25 06:10 WBC 3.79 L 2.98 L RBC 4.20 3.83 L Hgb 13.2 12.0 Hct 40.8 37.2 MCV 97 97 MCH 31 31 MCHC 32 32 RDW Coeff of Trip 13.0 Plt Count 200 195 Neut % (Auto) 67.8 Lymph % (Auto) 15.8 L [place] % (Auto) 11.1 H Eos % (Auto) 4.7 Baso % (Auto) 0.3 Neut # (Auto) 2.60 Lymph # (Auto) 0.60 L [place] # (Auto) 0.40 Eos # (Auto) 0.20 Baso # (Auto) 0.00 Abs Immat Gran (auto) 0.00 Imm/Tot Granulo (auto) 0.3 Sodium 139 139 Potassium 4.0 4.0 Chloride 102 105 Carbon Dioxide 33 H 32 Anion Gap 4 L 2 L BUN 17 16 Creatinine 0.6 0.6 Estimated Creat Clear 46.43 46.43 Estimated GFR 96 96 Glucose 80 95 Lactate 1.0 Calcium 9.4 8.8 C-Reactive Protein < 0.5 L
[2023-06-16] MEDS: IBUPROFEN 200 MG TABLET 600 MG PO ×2 (11:47→18:41)
[2023-06-16] MEDS: ACETAMINOPHEN 500 MG TABLET 1000 MG PO ×2 (14:09→20:37)
--- NOTE | 2023-06-16 15:00 | PC.NURSE ---
End of shift: Pt is A&O, afebrile and VSS today. She has been deemed independent in her room & in the halls by PT. Pt rates pain at 3/10 in left leg and 4/10 left shoulder. Pt has refused to wear her shoulder sling today and has been keeping her LUE splinted against her body independently. Cool wash cloths have been relieving pain & urticaria of LL. PIV in right forearm is SL and C/D/I. Scheduled IV Vanco given per MAY q12H. Blood cx still pending. Pt had x1 medium BM today. Denies any dizziness, lightheadedness or nausea. Pt is hopeful to discharge home tomorrow, 06/16.
[2023-06-16] MEDS: ENOXAPARIN 30 MG/0.3ML INJ SUBCUT (18:51)
[2023-06-17 02:10] VITALS: PULSE 58
[2023-06-17] MEDS: ACETAMINOPHEN 500 MG TABLET 1000 MG PO ×2 (02:30→09:32)
[2023-06-17 02:40] VITALS: BP 164/87; PULSE 57; RESP 21; TEMP 36.8; O2SAT 93
--- NOTE | 2023-06-17 06:27 | PC.NURSE ---
Patient pleasant, alert and oriented. Independent with ambulation in room. Legs elevated on pillows in bed. Denied any pain however did report having some itching. Patient has been applying cool washcloths to help alleviate pain.
[2023-06-17 06:38] LABS: Hematocrit 35.7 % (33.0-51.0); Hemoglobin* 11.6 gm/dL (12.0-16.0); Mean Corpuscular HGB Conc 33 gm/dL (32-36); Mean Corpuscular Hemoglobin 32 pg (26-34); Mean Corpuscular Volume 98 fL (80-100); Platelet Count* 190 K/uL (140-440); Red Blood Count 3.66 m/uL (4.00-5.20); White Blood Count* 2.81 K/uL (4.50-11.00)
[2023-06-17 06:46] LABS: Slide Review Reflex No
[2023-06-17 06:48] LABS: Chloride* 106 mmol/L (96-114)
[2023-06-17 06:49] LABS: Sodium* 139 mmol/L (135-149)
[2023-06-17 06:51] LABS: Creatinine* 0.6 mg/dL (0.5-1.5); Est. Creatinine Clearance* 46.43; Estimated Glomerular Filt Rate 96 ml/min
[2023-06-17 06:52] LABS: Anion Gap 3 mEq/L (7-15); Blood Urea Nitrogen* 17 mg/dL (7-30); Calcium* 8.9 mg/dL (8.4-10.6); Carbon Dioxide* 30 mmol/L (20-32); Glucose* 99 mg/dL (60-115)
[2023-06-17 06:58] LABS: C Reactive Protein* < 0.5 mg/dL (0.5-1.0)
[2023-06-17 07:00] VITALS: BP 160/72; PULSE 60; PULSE 62; PULSE 64; RESP 16; RESP 18; TEMP 37; O2SAT 94
[2023-06-17] MEDS: ROSUVASTATIN CALCIUM 10 MG TABLET 5 MG PO (09:31)
[2023-06-17] MEDS: OMEPRAZOLE 20 MG CAPSULE DR PO (09:32)
[2023-06-17] MEDS: LOSARTAN POTASSIUM 50 MG TABLET 100 MG PO (09:33)
[2023-06-17] MEDS: FUROSEMIDE 20 MG TABLET PO (09:33)
[2023-06-17] MEDS: CITALOPRAM HYDROBROMIDE 20 MG TABLET PO (09:33)
[2023-06-17] MEDS: SODIUM CHLORIDE 0.9 % (FLUSH) 10 ML SYRINGE 5 ML IVF (09:34)
[2023-06-17 10:47] LABS: Basophils Percent Auto 0.4 % (0.0-3.0); Eosinophils Percent Auto 7.9 % (0.0-7.0); Hematocrit 36.2 % (33.0-51.0); Hemoglobin* 11.7 gm/dL (12.0-16.0); Lymphocytes Percent Auto 31.9 % (20-44); Mean Corpuscular HGB Conc 32 gm/dL (32-36); Mean Corpuscular Hemoglobin 32 pg (26-34); Mean Corpuscular Volume 98 fL (80-100); Monocytes Percent Auto 11.5 % (0.0-11.0); Neutrophils Percent Auto 48.3 % (42.0-72.0); Platelet Count* 194 K/uL (140-440); Red Blood Count 3.71 m/uL (4.00-5.20); White Blood Count* 2.79 K/uL (4.50-11.00)
[2023-06-17 10:49] LABS: Slide Review Reflex No
--- NOTE | 2023-06-17 11:42 | PM.DS1 ---
DS: Providers Provider Date Seen: 06/17/23 Date of admission: 06/15/23 19:02 Primary care physician: Lindy Sr DO Admitting Clinician: Trixie Lowe MD Attending Physician on discharge: Madhav Santos MD Date of Discharge: 06/17/23 DS: Diagnosis Discharge Diagnosis (1) Cellulitis: Status: Acute Problem details: 06/14: - Suspected, status post fall, failed outpatient therapy with oral cephalexin (started 06/13/2023). Cellulitis is much improved. - No systemic signs currently. Skin intact, no drainage. - CT scan shows generalized superficial edema which is most prevalent between the patella and tibial tubercle. This area on clinical examination has marked bruising. No defined fluid collection on CT. No abscess. No osteomyelitis or other significant osseous abnormality. - Venous ultrasound 06/13/2023 negative for DVT (2) Lymphedema: Status: Acute Problem details: Chronic problem. Patient poorly tolerates compression but I urged her to do compression stockings and elevation as the primary treatment for lymphedema. She is also on a diuretic which may provide some benefit. (3) Morbid obesity with BMI of 45.0-49.9, adult: Status: Acute (4) Status post fall: Status: Acute Problem details: DOI: 05/29/2023 Sustained anterior dislocation of left shoulder, contusion of left knee, abrasion right elbow Had outpatient follow-up in orthopedic clinic on 06/02/2023 (5) Adjustment disorder with depressed mood: Status: Acute Problem details: Start celexa 06/16/23. Follow-up with primary care to determine appropriate ongoing management DS: Summary Hospital Course Hospital Course: HPI: Marylin Casillas is a 72 year old female past medical history significant for hypertension, hyperlipidemia, GERD is admitted to the medical floor from the ED for further management left lower extremity cellulitis following failed outpatient therapy. Patient reports slipping and falling on a deck on 05/29/2023, sustaining a left anterior shoulder dislocation which was reduced in the ED, currently managed in a sling, a left lower extremity contusion, and a right elbow contusion. She had a follow-up visit in the orthopedic clinic on 06/02/2023. Approximately 1 week ago patient began having increased swelling of the left lower extremity. She was started on Lasix. Her HCTZ has been held. Bruising has evolved. In the last several days, left lower extremity has been noted to be more red and warm to touch. She was seen in the ED on 06/12 where a venous ultrasound was negative for DVT. She was placed on cephalexin for a suspected cellulitis. She returns to the ED with increasing swelling, redness and pain. Denies recent headaches or dizziness. Denies recent fevers or malaise. Denies chest pain or shortness of breath. Denies nausea, vomiting. Denies change in bowels or urination. She lives in her own home with her . She is a social smoker. Rare alcohol use. In the hospital she was treated with vancomycin and elevation of her legs. She had ongoing improvement in her edema and erythema of her left leg. Status at Discharge Functional status at discharge: uses cane/walker Overall status at discharge: patient is progressing back to baseline Time Spent with Patient Time attestation: Total time spent providing and/or coordinating discharge services: 45 mins. Time spent: Greater than 30 minutes Exam Narrative: Exam Narrative: Patient is tearful intermittently during our interview. She expresses a number of concerns about her health. She was just initiated on citalopram for clinical diagnosis of depression yesterday. Examination of her lower extremity shows that she has mild erythema circumferentially from the knee to the ankle on the left and not on the right. She has 1 to 2+ edema in both lower extremities. Nonpitting. Mild warmth over her left lower extremity. The erythema of her left leg is not typical erysipelas. She has a macular papular erythema which is nearly confluent in some areas on her leg. No open skin lesions, abscess, point tenderness. Around the medial left knee she has a moderate amount of bruising. Distally intact pedal pulses. Const: Vital Signs, click to edit/add: Vital Signs - 24 hr 06/16/23 15:00 06/16/23 15:00 06/16/23 15:00 Temperature 98.4 F Pulse Rate 62 Pulse Rate [Pulse Oximeter] 68 68 Respiratory Rate 16 16 Blood Pressure [Ri ght Arm] 145/92 H Pulse Oximetry 93 Oxygen Delivery Me thod Room Air 06/16/23 19:00 06/16/23 20:46 06/16/23 23:08 Temperature 99.1 F 98.5 F Pulse Rate Pulse Rate [Pulse Oximeter] 57 L 69 Respiratory Rate 22 22 16 Blood Pressure [Ri ght Arm] 156/93 H 159/94 H Pulse Oximetry 93 93 95 Oxygen Delivery Me thod Room Air Room Air Room Air 06/17/23 02:10 06/17/23 02:40 06/17/23 07:00 Temperature 98.3 F Pulse Rate 58 L 60 Pulse Rate [Pulse Oximeter] 57 L Respiratory Rate 21 Blood Pressure [Ri ght Arm] 164/87 H Pulse Oximetry 93 Oxygen Delivery Me thod Room Air Documenting provider has reviewed patient's vital signs: yes DS: Data Data Completed and Pending Labs on day of discharge: Labs from last 24 hours 06/17/23 06/17/23 06/17/23 05:43 05:43 05:43 WBC RBC Hgb Hct MCV MCH 32 MCHC 32 33 RDW Coeff of Trip 13.0 Plt Count 194 190 Neut % (Auto) 48.3 Lymph % (Auto) 31.9 [place] % (Auto) 11.5 H Eos % (Auto) 7.9 H Baso % (Auto) 0.4 Neut # (Auto) 1.30 L Lymph # (Auto) 0.90 [place] # (Auto) 0.30 Eos # (Auto) 0.20 Baso # (Auto) 0.00 Abs Immat Gran (auto) 0.00 Imm/Tot Granulo (auto) 0.0 Sodium 139 Potassium 4.0 Chloride 106 Carbon Dioxide 30 Anion Gap 3 L BUN 17 Creatinine 0.6 Estimated Creat Clear 46.43 Estimated GFR 96 Glucose 99 Calcium 8.9 C-Reactive Protein < 0.5 L 06/17/23 06/17/23 06/17/23 05:43 05:43 05:43 WBC RBC Hgb 11.7 L Hct 36.2 35.7 MCV 98 98 MCH 32 MCHC RDW Coeff of Trip Plt Count Neut % (Auto) Lymph % (Auto) [place] % (Auto) Eos % (Auto) Baso % (Auto) Neut # (Auto) Lymph # (Auto) [place] # (Auto) Eos # (Auto) Baso # (Auto) Abs Immat Gran (auto) Imm/Tot Granulo (auto) Sodium Potassium Chloride Carbon Dioxide Anion Gap BUN Creatinine Estimated Creat Clear Estimated GFR Glucose Calcium C-Reactive Protein 06/17/23 06/17/23 06/17/23 05:43 05:43 05:43 WBC 2.79 L 2.81 L RBC 3.71 L 3.66 L Hgb 11.6 L Hct MCV MCH MCHC RDW Coeff of Trip Plt Count Neut % (Auto) Lymph % (Auto) [place] % (Auto) Eos % (Auto) Baso % (Auto) Neut # (Auto) Lymph # (Auto) [place] # (Auto) Eos # (Auto) Baso # (Auto) Abs Immat Gran (auto) Imm/Tot Granulo (auto) Sodium Potassium Chloride Carbon Dioxide Anion Gap BUN Creatinine Estimated Creat Clear Estimated GFR Glucose Calcium C-Reactive Protein Preliminary micro results at discharge 06/15/23 16:10 Blood Culture - Preliminary Blood NO GROWTH AFTER 24 HOURS 06/15/23 15:25 Blood Culture - Preliminary Blood NO GROWTH AFTER 24 HOURS Discharge Plan Discharge Disposition: Home, Self-Care Date of Admission: 06/15/23 19:02 Attending Provider on Discharge: Balta Santos Primary Care Provider: Lindy Sr Condition: Improved Anticipated Discharge Date/Time: 06/17/23 08:56 Discharge Medications: New citalopram 20 mg Tablet 20 mg PO DAILY Qty: 30 0RF Continued psyllium husk [Fiber (psyllium husk)] 0.4 gram capsule 0.8 g PO DAILY losartan 100 mg tablet 100 mg PO DAILY Patient Comments: TAKE ONE TABLET BY MOUTH EVERY DAY ALONG WITH THE HYDROCHLOROTHIAZIDE omeprazole 20 mg capsule,delayed release(DR/EC) 20 mg PO DAILY Patient Comments: TAKE ONE CAPSULE BY MOUTH EVERY DAY BEFORE A MEAL rosuvastatin 5 mg tablet 5 mg PO DAILY Patient Comments: TAKE ONE TABLET BY MOUTH AT BEDTIME PreserVision AREDS 4,296 mcg-226 mg-90 mg capsule 1 cap PO BID furosemide 20 mg tablet 20 mg PO QAM cephalexin 500 mg tablet 500 mg PO TID Qty: 20 0RF Patient Comments: 06/12 thru 06/18 Discontinued hydrochlorothiazide 12.5 mg tablet 12.5 mg PO DAILY Hold Instructions: ON HOLD Patient Comments: TAKE ONE TABLET BY MOUTH EVERY DAY Discharge Orders: Discharge Order (Routine); Ordered 06/17/23 Ordered By: Balta Santos Patient Education: Citalopram (By mouth), Cellulitis (GEN) Additional Instructions: Elevate your legs when in chair or bed. Put pillows under your legs at night. If you are sitting in a recliner elevate your legs as high as possible. Get as much exercise as you can tolerate. Wear compression stockings when you are not in bed. Activity Level: No Restrictions Discharge Diet: 2 gm Sodium Follow Up Appointments: Lindy Sr DO [Primary Care Provider] - 06/26/23 1:50 pm ([facility] for follow up ) Forms: [employer] Info Instructions
--- NOTE | 2023-06-17 13:59 | PC.NURSE ---
Shift Note: Pt independent and moving well throughout her room. Ambitious with leg elevation. Rates pain 3/10. VS WNL and LS COA. Afebrile. IV infiltrated, ok with discontinuing Vanco. Pt discharged to home in the care of her at 1202. Pt and her verbalized understanding of discharge instructions and follow up appointments. Pt will transition to previous Keflex prescription at home per MD.
== END 2023-06-17 12:00 | disposition home or self-care (01) ==
LOC: ED 18:21 → MEDSURG 19:03
PROVIDERS: Family Medicine; Physician Assistant; Admitting Provider Family Medicine; Emergency Provider Emergency Medicine; PCP Family Medicine; Visit Provider Family Medicine
DX: L03.116 Cellulitis of left lower limb (principal); R60.0 Localized edema; Z91.81 History of falling; I89.0 Lymphedema, not elsewhere classified; L53.8 Other specified erythematous conditions; M79.605 Pain in left leg; S43.015A Anterior dislocation of left humerus, initial encounter; S80.02XA Contusion of left knee, initial encounter; S50.311A Abrasion of right elbow, initial encounter; I10 Essential (primary) hypertension; K21.9 Gastro-esophageal reflux disease without esophagitis; E78.5 Hyperlipidemia, unspecified; E66.01 Morbid (severe) obesity due to excess calories; F43.21 Adjustment disorder with depressed mood; Z68.42 Body mass index [BMI] 45.0-49.9, adult; Z98.41 Cataract extraction status, right eye; Z98.42 Cataract extraction status, left eye; F17.210 Nicotine dependence, cigarettes, uncomplicated; Z87.2 Personal history of diseases of the skin and subcutaneous tissue; Z86.16 Personal history of COVID-19; Z96.1 Presence of intraocular lens
CPT/HCPCS: 36415; 73701; 80048; 83605; 85025; 85027; 86140; 87040; 96365; 96366; 96372; 96375; 97161; 97165; 97535; 99284; 99285; G0378; A9270; J1650; J3370; J7030; Q9967

== ENCOUNTER 2024-05-11 15:23 | Inpatient (IN) | payer MEDICARE, SELFPAY ==
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
[2024-05-11 15:26] VITALS: BP 160/107; PULSE 59; RESP 16; TEMP 36.6; O2SAT 95; BMI 47.3
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
--- NOTE | 2024-05-11 15:50 | CRLHL7_ITS ---
For Patients: As a result of the Century Cures Act, medical imaging exams and procedure reports are released immediately into your electronic medical record. You may view this report before your referring provider. If you have questions, please contact your health care provider. INDICATION: Fall. TECHNIQUE: Noncontrast CT of the head with multiplanar reconstruction utilizing bone and soft tissue algorithms. COMPARISON: None available. FINDINGS: No acute intracranial hemorrhage. The bryan-white matter interface is preserved. The ventricles are normal in size. There is mild diffuse parenchymal volume loss. No abnormal extra-axial fluid collection is identified. Mildly displaced nasal bone fracture. Symmetric globes with evidence of prior cataract surgery. Scattered mucosal thickening and opacification of the ethmoid sinuses. IMPRESSION: 1. No acute intracranial hemorrhage or mass effect. 2. Mildly displaced nasal bone fracture. 3. Scattered mucosal thickening and opacification of the ethmoid sinuses. Please note that all CT scans at this facility use dose modulation, iterative reconstruction, and/or weight-based dosing when appropriate to reduce radiation dose to as low as reasonably achievable. Dictated by Braden Kemp MD @ 05/11/2024 4:27:59 PM (Electronically Signed)
--- NOTE | 2024-05-11 15:50 | CRLHL7_ITS ---
For Patients: As a result of the Cures Act, medical imaging exams and procedure reports are released immediately into your electronic medical record. You may view this report before your referring provider. If you have questions, please contact your health care provider. INDICATION: Trauma. TECHNIQUE: Left knee radiographs, 3 views. COMPARISON: None. FINDINGS: No acute fractures or dislocation. 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 Small suprapatellar joint effusion. No significant soft tissue edema or radiopaque foreign bodies. IMPRESSION: No acute displaced fractures or dislocation. Dictated by Gucci Yee MD @ 05/11/2024 4:45:17 PM (Electronically Signed)
--- NOTE | 2024-05-11 15:50 | CRLHL7_ITS ---
For Patients: As a result of the Century Cures Act, medical imaging exams and procedure reports are released immediately into your electronic medical record. You may view this report before your referring provider. If you have questions, please contact your health care provider. INDICATION: Fall. TECHNIQUE: Noncontrast CT of the head with multiplanar reconstruction utilizing bone and soft tissue algorithms. COMPARISON: None available. FINDINGS: Mildly displaced nasal bone fractures. Scattered mucosal thickening throughout the anterior ethmoid air cells and partial opacification of the right frontal sinus with frothy secretions. Symmetric globes without evidence of penetrating injury. IMPRESSION: 1. Mildly displaced nasal bone fractures. 2. Scattered paranasal sinus mucosal thickening with partial opacification of the right frontal sinus suggestive of acute sinus disease. Please note that all CT scans at this facility use dose modulation, iterative reconstruction, and/or weight-based dosing when appropriate to reduce radiation dose to as low as reasonably achievable. Dictated by Braden Kemp MD @ 05/11/2024 4:35:35 PM (Electronically Signed)
--- NOTE | 2024-05-11 15:51 | ED_ITS ---
HPI - Fall General Chief Complaint: Fall/Minor Trauma Stated Complaint: Fall Time Seen by Provider: 05/11/24 15:30 History of Present Illness HPI Narrative: This 73-year-old female fell at home on and to a wood floor. She fell onto her left side and did hit her face but did not have loss of consciousness. She had immediate bleeding from her nose. She was able to scoot over to a couch where her phone was and call for help. She reports pain in her left knee and left forearm. She did not have loss of consciousness. She is not on anticoagulants. She has had her right knee replaced and states that she will need her left knee replaced at some point. Related Data Home Medications ?Medication ?Instructions ?Recorded ?Confirmed losartan 100 mg tablet 100 mg PO DAILY 04/25/22 05/11/24 omeprazole 20 mg capsule,delayed 20 mg PO DAILY 04/25/22 05/11/24 release rosuvastatin 5 mg tablet 5 mg PO DAILY 04/25/22 05/11/24 psyllium husk 0.4 gram capsule 0.8 g PO DAILY 06/02/23 09/08/23 (Fiber (psyllium husk)) vitamins A,C,B-dlxn-dcdswa 4,296 1 cap PO BID 06/02/23 09/08/23 mcg-226 mg-90 mg capsule (PreserVision AREDS) furosemide 20 mg tablet 20 mg PO QAM 06/13/23 05/11/24 citalopram 10 mg tablet 10 mg PO QAM 05/11/24 05/11/24 Allergies Allergy/AdvReac Type Severity Reaction Status Date / Time Sulfa (Sulfonamide Allergy Mild Hives Verified 09/08/23 10:17 Antibiotics) Dilaudid Allergy Unknown Hallucinati Unverified 07/12/23 08:56 ons hydromorphone (Dilaudid) Allergy Unknown Hallucinati Unverified 09/08/23 10:17 ons terbinafine Allergy Unknown Hives Unverified 09/08/23 10:17 Opioids - Morphine Analogues Allergy vomiting Verified 09/08/23 10:17 Review of Systems Status of ROS: Reports: 10 or more systems reviewed and unremarkable except as noted in History and below Narrative: Constitutional: No fevers, no weight gain or loss. Eyes: No discharge. No vision changes. HENT: No congestion, no sore throat, no ear pain. Bleeding from her nose at the time of the injury and swelling on the left side of her nose. Cardiovascular: No chest pain, no palpitations. Respiratory: No shortness of breath, no wheezes, no cough. Gastrointestinal: No abdominal pain, no vomiting, no diarrhea. Genitourinary: No dysuria, no hematuria. Musculoskeletal: Left knee pain along with left elbow and wrist pain. Skin: No rashes, no pruritis. Neurological: No dizziness, weakness, sensory change, speech change. Endo/Heme/Allergies: No bruising or bleeding. No polydipsia. Pysch: no suicidality, no anxiety, no insomnia. All other systems reviewed and are negative. [facility] Medical History (Updated 05/11/24 @ 18:23 by Mikal Lopez MD) Anterior shoulder dislocation ?S43.016A - Anterior dislocation of unspecified humerus, initial encounter (ICD-10) Morbid obesity with BMI of 45.0-49.9, adult ?E66.01 - Morbid (severe) obesity due to excess calories (ICD-10) ?Z68.42 - Body mass index [BMI] 45.0-49.9, adult (ICD-10) Lymphedema ?I89.0 - Lymphedema, not elsewhere classified (ICD-10) GERD (gastroesophageal reflux disease) ?K21.9 - Gastro-esophageal reflux disease without esophagitis (ICD-10) Hyperlipidemia ?E78.5 - Hyperlipidemia, unspecified (ICD-10) Hypertension ?I10 - Essential (primary) hypertension (ICD-10) Infection due to severe acute respiratory syndrome coronavirus 2 (SARS-CoV-2) ?U07.1 - COVID-19 (ICD-10) Surgical History (Updated 09/08/23 @ 10:35 by Deonna Han) History of arthroscopy of right shoulder ?Z98.890 - Other specified postprocedural states (ICD-10) History of phacoemulsification of cataract of right eye with intraocular lens implantation (10/28/20) ?Z98.41 - Cataract extraction status, right eye (ICD-10) ?Z96.1 - Presence of intraocular lens (ICD-10) History of phacoemulsification of cataract of left eye with intraocular lens implantation (11/11/20) ?Z98.42 - Cataract extraction status, left eye (ICD-10) ?Z96.1 - Presence of intraocular lens (ICD-10) Social History (System 07/12/23 @ 08:56 by Desi Brock) What is your current living situation?: I presently have a place to live Problems where you live: no known problems Problems where you live details: n/a In the past 12 months, utilities in danger of being shut off: no In past 12 months, lack of transportation kept you from medical appts, meetings, work, or getting things needed for daily living: no In the past 12 mos, have been you worried that your food would run out before you had money to buy more?: never true In the past 12 mos, the food you bought just didn't last and you didn't have money to buy more?: never true Highest level of school completed/degree received: high school graduate Smoking Status: Light tobacco smoker What tobacco products do you use: cigarettes Do you use any of these nicotine containing products: None Second hand tobacco smoke exposure: No How often do you have a drink containing alcohol: monthly or less AUDIT-C Alcohol total score: 1 Non-prescribed substance use: denies use Caffeine: Yes How often does anyone, including family, friends and others, physically hurt you : never How often does anyone, including family, friends and others, insult or talk down to you: never How often does anyone, including family, friends and others, threaten you with harm: never How often does anyone, including family, friends and others, scream or curse at you: never service: No Exam Narrative: Exam Narrative: Constitutional: Well-developed, well-nourished, no acute distress. HEENT: Dried blood at the opening of her nose. There is some swelling on the left side of the bridge of her nose. Neck: Normal range of motion. Nontender. Supple. Heart: Regular. No murmurs. Normal rate. Intact distal pulses. Lungs: Clear to auscultation. No chest discomfort. No wheezes, rhonchi, or rales. Abdomen: Normal bowel sounds. Nontender. No rebound tenderness. Genitalia: Deferred. Back: No midline tenderness. Normal range of motion. Extremities: Diffuse tenderness in the left forearm but no point tenderness when palpating along it. Left knee has diffuse tenderness and she has more pain than she cares for when attempting to lift her leg off the bed. There is no pain in her hip when log-rolling her leg. Skin: Intact. No rash. Warm. No erythema or pallor. Neurologic: No altered sensation. No weakness. Alert and oriented. Psychiatric: No suicidality. No anxiety or depression. No insomnia. Nursing notes and vitals signs are reviewed. Const: Vital Signs, click to edit/add: Vital Signs - 24 hr 05/11/24 15:26 05/11/24 17:06 Temperature 97.8 F 98.7 F Pulse Rate [Pulse Oximeter] 59 L 55 L Respiratory Rate 16 18 Blood Pressure [facility]] 160/107 H 175/114 H Pulse Oximetry 95 95 Oxygen Delivery Me thod Room Air Room Air Course Vital Signs Vital signs: Initial Vital Signs Temperature 97.8 F 05/11/24 15:26 Temperature Source Temporal Artery Scan 05/11/24 15:26 Pulse Rate 59 L 05/11/24 15:26 Respiratory Rate 16 05/11/24 15:26 Blood Pressure 160/107 H 05/11/24 15:26 Blood Pressure Mean 124 H 05/11/24 15:26 Blood Pressure Position Sitting 05/11/24 15:26 Pulse Oximetry 95 05/11/24 15:26 Oxygen Delivery Method Room Air 05/11/24 15:26 Vital Signs Temperature 97.8 F 05/11/24 15:26 Pulse Rate 59 L 05/11/24 15:26 Respiratory Rate 16 05/11/24 15:26 Blood Pressure 160/107 H 05/11/24 15:26 Pulse Oximetry 95 05/11/24 15:26 Oxygen Delivery Method Room Air 05/11/24 15:26 Temperature 98.7 F 05/11/24 17:06 Pulse Rate 55 L 05/11/24 17:06 Respiratory Rate 18 05/11/24 17:06 Blood Pressure 175/114 H 05/11/24 17:06 Pulse Oximetry 95 05/11/24 17:06 Oxygen Delivery Method Room Air 05/11/24 17:06 Medications Administered Medications: Discontinued Medications Generic Name Dose Route Start Last Admin Trade Name Freq PRN Reason Stop Dose Admin Acetaminophen 1,000 mg 05/11/24 16:45 05/11/24 17:00 Acetaminophen 500 Mg Tablet PO 05/11/24 16:46 1,000 mg ONCE ONE Administration MDM - Fall MDM Narrative Medical decision making narrative: This patient comes in for evaluation of injuries from a fall that occurred just prior to arrival. She fell onto her left side and did hit her nose but did not have loss of consciousness. CT scan of the head is negative but facial bones scan does show a minimally displaced fracture of her nose. 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 X-ray of the left forearm shows a nondisplaced fracture of the radial head. Patient was placed in a sling and in a wrist splint. She was unable to get up and ambulate given her knee pain and her arm which is not functioning well enough. I did speak with the hospitalist on-call, Dr. Santos, who agrees to her admission. The patient did receive Toradol 30 mg intravenously EN route here and Tylenol 1000 mg orally while visiting here in the emergency department. Imaging Data CT Facial bones: Radiologist's impression: 1. Mildly displaced nasal bone fractures. 2. Scattered paranasal sinus mucosal thickening with partial opacification of the right frontal sinus suggestive of acute sinus disease. CT scan - head: Radiologist's impression: 1. No acute intracranial hemorrhage or mass effect. 2. Mildly displaced nasal bone fracture. 3. Scattered mucosal thickening and opacification of the ethmoid sinuses. XR L Knee: Radiologist's impression: No acute displaced fractures or dislocation. XR L Forearm: Radiologist's impression: Acute nondisplaced fracture of the radial head with a probable small left elbow joint effusion. Discharge Plan Discharge Clinical Impression: Elbow fracture, left, Fracture of nasal bone Patient Disposition: Admitted As Observation Condition: Unchanged Prescriptions: No Action psyllium husk [Fiber (psyllium husk)] 0.4 gram capsule 0.8 g PO DAILY losartan 100 mg tablet 100 mg PO DAILY Patient Comments: TAKE ONE TABLET BY MOUTH EVERY DAY ALONG WITH THE HYDROCHLOROTHIAZIDE omeprazole 20 mg capsule,delayed release(DR/EC) 20 mg PO DAILY Patient Comments: TAKE ONE CAPSULE BY MOUTH EVERY DAY BEFORE A MEAL rosuvastatin 5 mg tablet 5 mg PO DAILY Patient Comments: TAKE ONE TABLET BY MOUTH AT BEDTIME PreserVision AREDS 4,296 mcg-226 mg-90 mg capsule 1 cap PO BID furosemide 20 mg tablet 20 mg PO QAM citalopram 10 mg tablet 10 mg PO QAM Follow Up/Referrals: Lindy Sr DO [Primary Care Provider] -
--- OUTSIDE RECORDS SUMMARY | 2024-05-11 16:31 | XMS_ITS | Clinical Summary ---
Author Organization [facility] [facility] Address [address] [place] [id number] Care Team Providers Care [employer] Name Role Phone AlmatLindy Primary Care Provider [phone] [facility] [place] Unavailable Allergies Active Allergy Reactions Criticality Noted [...] Name Administration Dates Next Due COVID-19 vaccine ([employer] NTHeyAnita 30mcg/0.3mL) PF, MDV 07/25/2020,07/04/2020 Hepatitis A, Unspecified [...] on file Legal Sex Female 6:59 AM [employer] Gender Identity Not on file Sexual Orientation Not on file Occupation Industry Job Start Date Job End Date Not on file Not on file Not on file Not on file Obstetrics History Last Filed Vital Signs Vital Sign Reading Time Taken Comments Blood Pressure 131/87 10/04/2023 11:13 AM CDT Pulse 55 10/04/2023 11:13 AM CDT Temperature 36.8 C (98.2 F) 04/27/2022 11:17 AM [employer] Respiratory Rate 20 04/22/2022 5:28 PM [employer] Oxygen Saturation 95% 10/04/2023 11:13 AM CDT [...] through age 76 10/20/202710/19 ([facility]), 07/19/2012 (Verified in Care Everywhere or Patient [...] health insurance. Recommendations are based on the [employer] [place] [employer] Appropriateness Criteria. Patients with a BI-RADS category of 0 should follow the recommendations for further evaluation before considering supplemental screening. Narrative 10/04/2023 2:55 PM CDT EXAM: MAMMOGRAM SCREENING VALDEZ BILATERAL LOCATION: [facility] DATE: 10/04/2023 INDICATION: Asymptomatic. Screening Mammogram. COMPARISON: 08/30/22, 05/14/21 and 10/03/2016. BREAST DENSITY: There are scattered areas of fibroglandular density. FINDINGS: Tomosynthesis craniocaudal and mediolateral oblique views were obtained. There is no evidence for spiculated masses, architectural distortion, asymmetry or suspicious calcifications. Procedure Note Guilherme Delacruz MD - 10/04/2023 EXAM: MAMMOGRAM SCREENING VALDEZ BILATERAL LOCATION: [facility] DATE: 10/04/2023 INDICATION: Asymptomatic. Screening [...] health insurance. Recommendations are based on the [employer] [place] [employer] Appropriateness Criteria. Patients with a BI-RADS category of 0 should follow the recommendations for further evaluation before considering supplemental screening. Lindy Marquezt DO MAMMO Final Resul t * (ABNORMAL) LIPID PANEL W REFLEX MEASURED LDL (10/04/2023 12:21 PM CDT) CHOLESTEROL,TOTAL 170 100 - 199 mg/dL 10/05/2023 3:53 AM CDT [facility] Comment: Cholesterol, Total Reference Ranges Desirable <200 mg/dL Borderline 200-239 mg/dL High >=240 mg/dL TRIGLYCERIDES 125 <150 mg/dL 10/05/2023 3:53 AM CDT [facility] HDL CHOLESTEROL 39(L) >40 mg/dL 3:53 AM CDT [facility] NON-HDL CHOLESTEROL 131 <145 mg/dl 10/05/2023 3:53 AM CDT [facility] CHOL/HDL RATIO 4.36 <4.50 10/05/2023 3:53 AM CDT [facility] LDL CHOLESTEROL 106 <=130 mg/dL 10/05/2023 3:53 AM CDT [facility] VLDL CHOLESTEROL 25 <=30 mg/dL 10/05/2023 3:53 AM CDT [facility] PROVIDER ORDERED STATUS RANDOM 10/05/2023 3:53 AM CDT [facility] Blood BLOOD SPECIMEN / Unknown Venipuncture / Unknown 10/04/2023 12:21 PM CDT 10/04/2023 12:23 PM CDT Lindy Marquezt DO CHEMISTRY Final Resul t [facility] [address] [place] [address], [place] * (ABNORMAL) XR DXA BONE DENSITY 2 SITES AXIAL (11/04/2019 9:57 AM CDT) Anatomical Region Laterality Modality Spine, HIPS, HIPL, HIPR Other Narrative 11/06/2019 7:47 AM CDT Please see scanned document for results of this study. Lindy Sr DO DEXA Final Resul t from Last 3 Months or Most Recently Relevant to Health Maintenance Insurance [facility] [employer] MEDICARE ADVANTAGE [employer] * Guarantor: MICAH MCKEON DS & BATS ONLY Account Type Relation to Patient Date of Phone Billing Address [facility] 03/20/2000 [id number] [id number] Advance Directives * Full Code (Latest Code Status on File) Date Activated Date Inactivated Comments 05/16/2013 11:22 PM 05/18/2013 5:59 PM Care Teams [employer] Relationship Specialty Start Date End Date Lindy Sr DO [address] [place] [address] PCP - General Family Practice 07/19/[address] [address] 09/23/20
[2024-05-11] MEDS: ACETAMINOPHEN 500 MG TABLET 1000 MG PO (17:00)
[2024-05-11 17:06] VITALS: BP 175/114; PULSE 55; RESP 18; TEMP 37.1; O2SAT 95
--- NOTE | 2024-05-11 18:47 | CRLHL7_ITS ---
For Patients: As a result of the Century Cures Act, medical imaging exams and procedure reports are released immediately into your electronic medical record. You may view this report before your referring provider. If you have questions, please contact your health care provider. Indication: Trauma. Technique: Left wrist, 3 views. Comparison: None. Findings/Impression: Bones: Alignment is normal. No displaced fractures or bone lesions. Joint spaces: Degenerative changes most pronounced at the triscaphe joint. Additional chondrocalcinosis.. Soft tissues: Unremarkable. Dictated by Chepe Galvan MD @ 05/11/2024 7:02:13 PM (Electronically Signed)
--- NOTE | 2024-05-11 19:03 | PM.IMHP1 ---
Hospitalist- H&P: HPI History of Present Illness Date Seen: 05/11/24 Chief complaint: Fall Narrative: Marylin Casillas is a 73 year old female is admitted through the emergency department after injuring herself with a fall at home. She was vacuuming her floor today when she tripped over the vacuum cord. She landed on her left knee, left arm and also hit her nose. There was no loss of consciousness. She reports no other injuries or areas of pain. She reports that she was feeling well prior to the fall. She does have a significant history of osteoarthritis of the left patellofemoral joint. She has been contemplating knee replacement surgery for that. That pain is now much worse after the fall. She reports she cannot bear weight on her left knee. It also hurts to move her left wrist and her left elbow. She sustained a fracture of her nose. She had a bloody nose which is stopped. She also has an abrasion over her nose. Evaluation in the emergency room shows head CT with a mildly displaced nasal fracture and scattered mucosal thickening and opacification of the ethmoid sinuses, no intracranial bleed, left radial head nondisplaced fracture, left wrist radiographs without fracture, left knee with degenerative changes, especially patellofemoral arthritis, but no fracture. In the emergency department attempts were made to get her to stand and walk which she was unable to primarily because of knee pain but also could not bear weight holding on to a walker with her left upper extremity due to her elbow/radial head fracture and wrist pain. Review of Systems Narrative: She reports no recent illness. No other injuries except as described above [facility] Medical History (Updated 05/11/24 @ 19:22 by Balta Santos MD) Impaired mobility ?Z74.09 - Other reduced mobility (ICD-10) Anterior shoulder dislocation ?S43.016A - Anterior dislocation of unspecified humerus, initial encounter (ICD-10) Morbid obesity with BMI of 45.0-49.9, adult ?E66.01 - Morbid (severe) obesity due to excess calories (ICD-10) ?Z68.42 - Body mass index [BMI] 45.0-49.9, adult (ICD-10) Lymphedema ?I89.0 - Lymphedema, not elsewhere classified (ICD-10) GERD (gastroesophageal reflux disease) ?K21.9 - Gastro-esophageal reflux disease without esophagitis (ICD-10) Hyperlipidemia ?E78.5 - Hyperlipidemia, unspecified (ICD-10) Hypertension ?I10 - Essential (primary) hypertension (ICD-10) Infection due to severe acute respiratory syndrome coronavirus 2 (SARS-CoV-2) ?U07.1 - COVID-19 (ICD-10) Surgical History History of arthroscopy of right shoulder ?Z98.890 - Other specified postprocedural states (ICD-10) History of phacoemulsification of cataract of right eye with intraocular lens implantation (10/28/20) ?Z98.41 - Cataract extraction status, right eye (ICD-10) ?Z96.1 - Presence of intraocular lens (ICD-10) History of phacoemulsification of cataract of left eye with intraocular lens implantation (11/11/20) ?Z98.42 - Cataract extraction status, left eye (ICD-10) ?Z96.1 - Presence of intraocular lens (ICD-10) Social History (Updated 05/11/24 @ 19:22 by Balta Santos MD) Narrative: She lives with her in [place]. They live in a house with 3-4 steps to get in. She can then live on 1 level. Code status is full. She rarely drinks alcohol. She smokes about 1 pack of cigarettes a month What is your current living situation?: I presently have a place to live Problems where you live: no known problems Problems where you live details: n/a In the past 12 months, utilities in danger of being shut off: no In past 12 months, lack of transportation kept you from medical appts, meetings, work, or getting things needed for daily living: no In the past 12 mos, have been you worried that your food would run out before you had money to buy more?: never true In the past 12 mos, the food you bought just didn't last and you didn't have money to buy more?: never true Highest level of school completed/degree received: high school graduate Smoking Status: Light tobacco smoker What tobacco products do you use: cigarettes Do you use any of these nicotine containing products: None Second hand tobacco smoke exposure: No How often do you have a drink containing alcohol: monthly or less AUDIT-C Alcohol total score: 1 Non-prescribed substance use: denies use Caffeine: Yes How often does anyone, including family, friends and others, physically hurt you: never How often does anyone, including family, friends and others, insult or talk down to you: never How often does anyone, including family, friends and others, threaten you with harm: never How often does anyone, including family, friends and others, scream or curse at you: never service: No Meds Home Medications and Allergies Home Medications ?Medication ?Instructions ?Recorded ?Confirmed ?Type losartan 100 mg tablet 100 mg PO DAILY 04/25/22 05/11/24 History omeprazole 20 mg capsule,delayed 20 mg PO DAILY 04/25/22 05/11/24 History release rosuvastatin 5 mg tablet 5 mg PO DAILY 04/25/22 05/11/24 History psyllium husk 0.4 gram capsule 0.8 g PO DAILY 06/02/23 09/08/23 History (Fiber (psyllium husk)) vitamins A,C,J-lppn-fahmok 4,296 1 cap PO BID 06/02/23 09/08/23 History mcg-226 mg-90 mg capsule (PreserVision AREDS) furosemide 20 mg tablet 20 mg PO QAM 06/13/23 05/11/24 History citalopram 10 mg tablet 10 mg PO QAM 05/11/24 05/11/24 History Allergies Allergy/AdvReac Type Severity Reaction Status Date / Time Sulfa (Sulfonamide Allergy Mild Hives Verified 09/08/23 10:17 Antibiotics) Dilaudid Allergy Unknown Hallucinati Unverified 07/12/23 08:56 ons hydromorphone (Dilaudid) Allergy Unknown Hallucinati Unverified 09/08/23 10:17 ons terbinafine Allergy Unknown Hives Unverified 09/08/23 10:17 Opioids - Morphine Analogues Allergy vomiting Verified 09/08/23 10:17 Exam Narrative: Exam Narrative: She is alert and appears in no distress. She gives her own history. Head is notable for abrasion over the tip of her nose and swelling over the bridge of the nose consistent with known fracture. No current bleeding. Eyes are normal. Pupils are equal round reactive to light. No facial asymmetry. Oropharynx is normal. Small airway. Neck is supple without mass or adenopathy. Respirations are clear to auscultation. Cardiovascular: S1, S2, regular rate and rhythm. No murmur gallop or rub. Abdomen: Bowel sounds active. Abdomen is soft without tenderness or mass. Wet upper extremity is normal without evidence of trauma. She moves her right upper extremity well. Left upper extremity noted for pain with movement in the elbow or wrist. Palpation over the elbow is without significant tenderness. Palpation with the wrist has some mild diffuse tenderness. No obvious deformity. She moves fingers well in flexion and extension. Good capillary refill and good sensation in her fingers. Lower extremities: Right lower extremity is normal without apparent trauma or tenderness. She has 2+ edema. Left lower extremity is wrapped in elastic bandage around the knee. Also 2+ edema and intact pulses. She does not tolerate motion in her left knee at all. Const: Vital Signs, click to edit/add: Vital Signs - 24 hr 05/11/24 15:26 05/11/24 17:06 Temperature 97.8 F 98.7 F Pulse Rate [Pulse Oximeter] 59 L 55 L Respiratory Rate 16 18 Blood Pressure [Ri ght Upper Arm] 160/107 H 175/114 H Pulse Oximetry 95 95 Oxygen Delivery Me thod Room Air Room Air Documenting provider has reviewed patient's vital signs: yes Hospitalist - H&P: Result Imaging Left wrist: Radiologist's impression: [place] [address] Diagnostic Imaging Report Patient: Marylin Casillas MR#: [id number] : 1950 Acct:[id number] Loc: ED Service Date: 05/11/[address]: Ordering Physician: Balta Santos M.D. Date of Service: 05/11/24 Procedure(s): XR wrist LT min 3V Accession Number(s): [id number] cc: Lindy Sr D.O.; Balta Santos M.D.~ For Patients: As a result of the 21st Century Cures Act, medical imaging exams and procedure reports are released immediately into your electronic medical record. You may view this report before your referring provider. If you have questions, please contact your health care provider. Indication: Trauma. Technique: Left wrist, 3 views. Comparison: None. Findings/Impression: Bones: Alignment is normal. No displaced fractures or bone lesions. Joint spaces: Degenerative changes most pronounced at the triscaphe joint. Additional chondrocalcinosis.. Soft tissues: Unremarkable. Dictated by Chepe Galvan MD @ 05/11/2024 7:02:13 PM Left knee: Radiologist's impression: INDICATION: Trauma. TECHNIQUE: Left knee radiographs, 3 views. COMPARISON: None. FINDINGS: No acute fractures or dislocation. 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 Small suprapatellar joint effusion. No significant soft tissue edema or radiopaque foreign bodies. IMPRESSION: No acute displaced fractures or dislocation. Dictated by Gucci Yee MD @ 05/11/2024 4:45:[address] scan - head: Radiologist's impression: INDICATION: Fall. TECHNIQUE: Noncontrast CT of the head with multiplanar reconstruction utilizing bone and soft tissue algorithms. COMPARISON: None available. FINDINGS: No acute intracranial hemorrhage. The bryan-white matter interface is preserved. The ventricles are normal in size. There is mild diffuse parenchymal volume loss. No abnormal extra-axial fluid collection is identified. Mildly displaced nasal bone fracture. Symmetric globes with evidence of prior cataract surgery. Scattered mucosal thickening and opacification of the ethmoid sinuses. IMPRESSION: 1. No acute intracranial hemorrhage or mass effect. 2. Mildly displaced nasal bone fracture. 3. Scattered mucosal thickening and opacification of the ethmoid sinuses. Please note that all CT scans at this facility use dose modulation, iterative reconstruction, and/or weight-based dosing when appropriate to reduce radiation dose to as low as reasonably achievable. Dictated by Braden Kemp MD @ 05/11/2024 4:27:[address] face: Radiologist's impression: INDICATION: Fall. TECHNIQUE: Noncontrast CT of the head with multiplanar reconstruction utilizing bone and soft tissue algorithms. COMPARISON: None available. FINDINGS: Mildly displaced nasal bone fractures. Scattered mucosal thickening throughout the anterior ethmoid air cells and partial opacification of the right frontal sinus with frothy secretions. Symmetric globes without evidence of penetrating injury. IMPRESSION: 1. Mildly displaced nasal bone fractures. 2. Scattered paranasal sinus mucosal thickening with partial opacification of the right frontal sinus suggestive of acute sinus disease. Please note that all CT scans at this facility use dose modulation, iterative reconstruction, and/or weight-based dosing when appropriate to reduce radiation dose to as low as reasonably achievable. Dictated by Braden Kemp MD @ 05/11/2024 4:35:35 PM Left forearm: Radiologist's impression: INDICATION: Trauma. TECHNIQUE: Left forearm radiographs, 2 views. COMPARISON: None. FINDINGS: Acute nondisplaced fracture of the radial head. Probably a small left elbow joint effusion, poorly evaluated on this radiograph. No significant soft tissue edema or radiopaque foreign bodies. IMPRESSION: Acute nondisplaced fracture of the radial head with a probable small left elbow joint effusion. Dictated by Gucci Yee MD @ 05/11/2024 4:46:32 PM (Electronically Signed) Assessment and Plan Assessment and plan (1) Fracture of nasal bone: Problem comment: Symptomatic treatment. Reassess after swelling goes down for need for intervention. Status: Acute (2) Elbow fracture, left: Problem comment: Nondisplaced radial head fracture. Conservative management. Status: Acute (3) Osteoarthritis of left knee: Problem comment: severe patellofemoral arthritis. Was doing okay until she fell today and now is unable to bear weight on her left knee Status: Acute (4) Morbid obesity with BMI of 45.0-49.9, adult: Problem comment: 09/08/2023 BMI 45.3 Status: Acute (5) Lymphedema: Problem comment: Chronic problem. Patient poorly tolerates compression but I urged her to do compression stockings and elevation as the primary treatment for lymphedema. She is also on a diuretic which may provide some benefit. Johnie stockings in the hospital if tolerated Status: Acute (6) Impaired mobility: Problem comment: Currently unable to bear weight on the left knee. Due to left elbow injury is unable to offload pressure on the left. PT and OT to assess and treat current injuries and disabilities and immobility. Status: Acute (7) Discharge planning issues: Problem comment: Currently unable to get around well enough to return home. Status: Acute Plan Consult orthopedics, PT and OT and adoption social worker to develop a plan for management of her injuries and immobility with a goal of returning home Total Time Spent Total Time Spent: Total time spent today is 65 minutes in reviewing past records, coordination of care, discussing with patient, and other providers ongoing management of her injuries and disabilities
[2024-05-11 19:44] VITALS: BP 160/104; PULSE 54; RESP 18; TEMP 37; O2SAT 95; BMI 48.9
[2024-05-11 19:59] VITALS: BP 160/104; PULSE 54; RESP 18; TEMP 37; O2SAT 95
[2024-05-11] MEDS: IBUPROFEN 400 MG TABLET PO (21:02)
[2024-05-11] MEDS: SODIUM CHLORIDE 0.9 % (FLUSH) 10 ML SYRINGE 5 ML IVF (21:03)
[2024-05-11 22:13] VITALS: BP 126/90; PULSE 55; RESP 18; TEMP 36.4; O2SAT 90
[2024-05-12 01:15] LABS: Basophils Absolute Auto 0.03 K/uL (0.00-0.30); Basophils Percent Auto 0.5 % (0.0-3.0); Eosinophils Absolute Auto 0.15 K/uL (0.00-0.50); Eosinophils Percent Auto 2.5 % (0.0-7.0); Hematocrit 41.1 % (33.0-51.0); Hemoglobin* 13.2 gm/dL (12.0-16.0); Immature Granulocytes Abs Auto 0.01 K/uL (0.00-0.30); Immature Granulocytes Pct Auto 0.2 %; Lymphocytes Absolute Auto 1.28 K/uL (0.90-2.90); Lymphocytes Percent Auto 21.7 % (20-44); Mean Corpuscular HGB Conc 32 gm/dL (32-36); Mean Corpuscular Hemoglobin 31 pg (26-34); Mean Corpuscular Volume 97 fL (80-100); Monocytes Percent Auto 8.5 % (0.0-11.0); Neutrophils Absolute Auto 3.93 K/uL (1.7-7.0); Neutrophils Percent Auto 66.6 % (42.0-72.0); Platelet Count* 122 K/uL (140-440); RDW Coefficient of Variation % 13.2 % (11.5-15.5); Red Blood Count 4.22 m/uL (4.00-5.20)
[2024-05-12] MEDS: ACETAMINOPHEN 500 MG TABLET 1000 MG PO ×3 (01:21→14:56)
[2024-05-12 01:28] LABS: Slide Review Reflex No
[2024-05-12 01:42] LABS: Chloride* 103 mmol/L (96-114); Sodium* 137 mmol/L (135-149)
[2024-05-12 01:45] LABS: Creatinine* 0.6 mg/dL (0.5-1.5); Est. Creatinine Clearance* 43.91; Estimated Glomerular Filt Rate 95 ml/min
[2024-05-12 01:46] LABS: Anion Gap 4 mEq/L (7-15); Blood Urea Nitrogen* 24 mg/dL (7-30); Calcium* 8.9 mg/dL (8.4-10.6); Carbon Dioxide* 30 mmol/L (20-32); Glucose* 98 mg/dL (60-115)
[2024-05-12 01:52] LABS: C Reactive Protein* < 0.5 mg/dL (0.5-1.0)
[2024-05-12 03:00] VITALS: BP 144/89; PULSE 55; RESP 18; TEMP 36.5; O2SAT 95
--- NOTE | 2024-05-12 05:12 | PC.NURSE ---
Shift note: Pt arrived at the unit at 1940 on admission bed the ED. She alert and oriented, mentally stable. Pt had splint to the left hand and LASHONDA wrap to the left leg, some minor tear and bruises to the nose. She reported pain of 5/10 to the left leg and 8/10 to the left hand. Pain gets severe with activity and reposition. Bp was high on arrival recorded as 160/106. Other v/s are stable. Pt has difficulty bearing weight on the right leg. Pelvic transfer with A2 to [facility] [place]. Pt had 1 medium size soft stool.
[2024-05-12] MEDS: OMEPRAZOLE 20 MG CAPSULE DR PO (07:51)
[2024-05-12 07:58] VITALS: BP 142/93; PULSE 60; RESP 18; TEMP 36.4; O2SAT 91
--- NOTE | 2024-05-12 08:56 | PM.IMPN1 ---
Progress Note: A&P Assessment and plan (1) Fracture of nasal bone: Problem details: Symptomatic treatment. Reassess after swelling goes down for need for intervention. Status: Acute (2) Elbow fracture, left: Problem details: Nondisplaced radial head fracture. Conservative management. Status: Acute (3) Osteoarthritis of left knee: Problem details: severe patellofemoral arthritis. Was doing okay until she fell today and now is unable to bear weight on her left knee Status: Acute (4) Morbid obesity with BMI of 45.0-49.9, adult: Problem details: 09/08/2023 BMI 45.3 Status: Acute (5) Lymphedema: Problem details: Chronic problem. Patient poorly tolerates compression but I urged her to do compression stockings and elevation as the primary treatment for lymphedema. She is also on a diuretic which may provide some benefit. Johnie stockings in the hospital if tolerated Status: Acute (6) Impaired mobility: Problem details: Currently unable to bear weight on the left knee. Due to left elbow injury is unable to offload pressure on the left. PT and OT to assess and treat current injuries and disabilities and immobility. Status: Acute (7) Discharge planning issues: Problem details: Currently unable to get around well enough to return home. Status: Acute (8) Triquetral fracture: Problem details: left Status: Acute (9) Tibial plateau fracture, left: Status: Acute Subjective Date Seen: 05/12/24 Interval history: Daily Progress Note - Hospital Medicine #: 2 CC: fall with significant injury: Acute nondisplaced fracture of the triquetrum, Very minimally depressed lateral tibial plateau fracture, acute nondisplaced fracture of the radial head with a probable small left elbow joint effusion, mildly displaced nasal bone fractures. 24 HOUR UPDATE: pain is better with Toradol; acetaminophen. PT did not go well today; can not weight bear on the left leg; left forearm is burning with pain. Notable Labs, Micro, Rads, Interventions: no new labs vitals stable. Objective: feeling a little overwhelmed by the fall and not sure how she is going to be able to move. coherent; insightful. Vitals: see above Lungs: Clear. Cardiac: S1S2. wrist: left joint tenderness laterally; minimal swelling. can not supinate. NVI. left knee: tender laterally; joint effusion. nasal bridge: swollen; abrasions. Disposition/Potential discharge - Today I spent 50minutes seeing the patient, reviewing Expanse and EPIC notes/diagnostics, discussing the care plan with our care time that includes social work, PT/OT, pharmacy, RT, long term and documenting my impressions and plan in the medical record. Exam Const: Vital Signs, click to edit/add: Vital Signs - 24 hr 05/11/24 15:26 05/11/24 17:06 05/11/24 19:44 Temperature 97.8 F 98.7 F 98.6 F Pulse Rate [Pulse Oximeter] 59 L 55 L Pulse Rate [Right Pulse Oximeter] 54 L Respiratory Rate 16 18 18 Blood Pressure [R FA] Blood Pressure [Ri ght Arm] 160/104 H Blood Pressure [Ri ght Upper Arm] 160/107 H 175/114 H Pulse Oximetry 95 95 95 Oxygen Delivery Me thod Room Air Room Air Room Air 05/11/24 19:44 05/11/24 19:59 05/11/24 22:13 Temperature 98.6 F Pulse Rate [Pulse Oximeter] Pulse Rate [Right Pulse Oximeter] 54 L 55 L Respiratory Rate 18 18 18 Blood Pressure [R FA] Blood Pressure [Ri ght Arm] 160/104 H Blood Pressure [Ri ght Upper Arm] Pulse Oximetry 95 95 Oxygen Delivery Me thod Room Air Room Air 05/11/24 22:13 05/12/24 03:00 05/12/24 07:58 Temperature 97.6 F 97.7 F Pulse Rate [Pulse Oximeter] Pulse Rate [Right Pulse Oximeter] 55 L 55 L 60 Respiratory Rate 18 18 18 Blood Pressure [R FA] Blood Pressure [Ri ght Arm] 126/90 H 144/89 H Blood Pressure [Ri ght Upper Arm] Pulse Oximetry 90 95 Oxygen Delivery Me thod Room Air Room Air 05/12/24 07:58 Temperature 97.6 F Pulse Rate [Pulse Oximeter] Pulse Rate [Right Pulse Oximeter] 60 Respiratory Rate 18 Blood Pressure [R FA] 142/93 H Blood Pressure [Ri ght Arm] Blood Pressure [Ri ght Upper Arm] Pulse Oximetry 91 Oxygen Delivery Me thod Room Air Labs Labs: Laboratory Results - last 24 hr 05/12/24 01:09 WBC 5.90 RBC 4.22 Hgb 13.2 Hct 41.1 MCV 97 MCH 31 MCHC 32 RDW Coeff of Trip 13.2 Plt Count 122 L Neut % (Auto) 66.6 Lymph % (Auto) 21.7 Bertie % (Auto) 8.5 Eos % (Auto) 2.5 Baso % (Auto) 0.5 Neut # (Auto) 3.93 Lymph # (Auto) 1.28 Bertie # (Auto) 0.50 Eos # (Auto) 0.15 Baso # (Auto) 0.03 Abs Immat Gran (auto) 0.01 Imm/Tot Granulo (auto) 0.2 Sodium 137 Potassium 4.0 Chloride 103 Carbon Dioxide 30 Anion Gap 4 L BUN 24 Creatinine 0.6 Estimated Creat Clear 43.91 Estimated GFR 95 Glucose 98 Calcium 8.9 C-Reactive Protein < 0.5 L
[2024-05-12] MEDS: KETOROLAC 30 MG/ML inj IVP ×3 (09:25→21:17)
[2024-05-12] MEDS: ROSUVASTATIN CALCIUM 10 MG TABLET 5 MG PO (09:25)
[2024-05-12] MEDS: MULTIVITAMIN/MINERALS 1 TABLET 1 TAB PO (09:25)
[2024-05-12] MEDS: LOSARTAN POTASSIUM 50 MG TABLET 100 MG PO (09:26)
[2024-05-12] MEDS: CITALOPRAM HYDROBROMIDE 20 MG TABLET 10 MG PO (09:26)
[2024-05-12] MEDS: SODIUM CHLORIDE 0.9 % (FLUSH) 10 ML SYRINGE 5 ML IVF ×2 (09:26→21:18)
[2024-05-12 11:00] VITALS: BP 127/85; PULSE 61; RESP 18; O2SAT 91
--- NOTE | 2024-05-12 12:39 | CRLHL7_ITS ---
For Patients: As a result of the Century Cures Act, medical imaging exams and procedure reports are released immediately into your electronic medical record. You may view this report before your referring provider. If you have questions, please contact your health care provider. INDICATION: Fall with left knee pain. TECHNIQUE: CT left knee without contrast. COMPARISON: None. FINDINGS: Bones: Acute nondisplaced fracture of the lateral tibial plateau with minimal 1-2 mm of depression. No other fracture and no dislocation. Joints: Moderate arthritis with prominent periarticular osteophytes. Traumatic joint effusion is present. Soft tissues: Unremarkable. IMPRESSION: Very minimally depressed lateral tibial plateau fracture. Please note that all CT scans at this facility use dose modulation, iterative reconstruction, and/or weight-based dosing when appropriate to reduce radiation dose to as low as reasonably achievable. Dictated by Juan Waldron MD @ 05/12/2024 3:19:25 PM (Electronically Signed)
--- NOTE | 2024-05-12 12:39 | CRLHL7_ITS ---
For Patients: As a result of the Century Cures Act, medical imaging exams and procedure reports are released immediately into your electronic medical record. You may view this report before your referring provider. If you have questions, please contact your health care provider. INDICATION: Trauma, fall. TECHNIQUE: CT left wrist without contrast. COMPARISON: None. FINDINGS: Bones: Acute nondisplaced fracture of the triquetrum. No other fracture and no dislocation. Joints: Chondrocalcinosis in the wrist joint. Soft tissues: Unremarkable. IMPRESSION: Acute nondisplaced fracture of the triquetrum. Please note that all CT scans at this facility use dose modulation, iterative reconstruction, and/or weight-based dosing when appropriate to reduce radiation dose to as low as reasonably achievable. Dictated by Juan Waldron MD @ 05/12/2024 3:24:27 PM (Electronically Signed)
[2024-05-12 15:00] VITALS: BP 159/104; PULSE 61; RESP 18; O2SAT 93
[2024-05-12 19:00] VITALS: BP 131/80; PULSE 62; RESP 16; TEMP 36.8; O2SAT 91
--- NOTE | 2024-05-12 19:24 | PC.NURSE ---
Nursing Care Hours: [id number] Pt this shift cooperative with cares, alert and oriented. Anxiety regarding pain and movement in the morning. Treated with Toradol IV, effective per pt however pain still very intense in L lateral knee with standing and bearing weight. CT scan done and pt is now NWB. Purewick cath order placed. Pt had BM this morning and was up in chair most of morning. Tolerated regular diet. L leg propped on pillow for comfort. L arm in sling, tolerated well.
[2024-05-12] MEDS: MELATONIN 3 MG TABLET PO (21:17)
[2024-05-12] MEDS: ACETAMINOPHEN 650 MG TABLET ER 1300 MG PO (21:17)
[2024-05-12] MEDS: ENOXAPARIN 40 MG/0.4 ML INJ SUBCUT (21:17)
[2024-05-12 23:00] VITALS: PULSE 62; RESP 16; RESP 20
[2024-05-13] VITALS (9 sets, daily range): BP systolic 128–166; BP diastolic 83–108; PULSE 57–65; RESP 16–18; TEMP 36.6–37.1; O2SAT 91–94
[2024-05-13] MEDS: KETOROLAC 30 MG/ML inj IVP ×3 (03:04→20:07)
[2024-05-13] MEDS: TRAMADOL HCL 50 MG TABLET PO (04:59)
[2024-05-13] MEDS: ACETAMINOPHEN 650 MG TABLET ER 1300 MG PO ×3 (04:59→23:16)
--- NOTE | 2024-05-13 05:26 | PC.NURSE ---
End of shift report [id number]: Pleasant and cooperative with cares. Pain to left arm/wrist and left knee well managed with current regimen. Left arm in sling, patient requested sling removed for the night, arm elevated on pillows. Left knee sam wrap intact, tolerated ice pack to knee. Facial bruising and swelling from fall, patient has bruising under left eye as well. CMS intact to left hand, patient able to move fingers. BLE pedal pulses intact, patient able to move both feet. LLE elevated on pillow. External catheter patent, draining lenin colored urine.
[2024-05-13] MEDS: OMEPRAZOLE 20 MG CAPSULE DR PO (06:25)
[2024-05-13] MEDS: LOSARTAN POTASSIUM 50 MG TABLET 100 MG PO (09:50)
[2024-05-13] MEDS: ROSUVASTATIN CALCIUM 10 MG TABLET 5 MG PO (09:50)
[2024-05-13] MEDS: FUROSEMIDE 20 MG TABLET PO (09:51)
[2024-05-13] MEDS: CITALOPRAM HYDROBROMIDE 20 MG TABLET 10 MG PO (09:51)
[2024-05-13] MEDS: PSYLLIUM HUSK (WITH SUGAR) 12 GM PACKET PO (09:54)
[2024-05-13] MEDS: MULTIVITAMIN/MINERALS 1 TABLET 1 TAB PO (09:54)
--- NOTE | 2024-05-13 10:08 | P.IMPN_ITS ---
Progress Note: A&P Assessment and plan (1) Status post fall: Problem details: DOI: 05/12/24. tripped over vacuum lamp cleaner street light cord. left: tibial plateau fx, left wrist/elbow fracture; broken nose. all non-operative; conservative care; will be six weeks of NWB - rehab candidate d/w ortho and is high risk for VTE; will do 10mg xarelto daily. Status: Acute (2) Tibial plateau fracture, left: Problem details: conservative care; will be six weeks of NWB Status: Acute (3) Radial head fracture, closed: Problem details: Nondisplaced radial head fracture. Conservative management. Status: Acute (4) Fracture of nasal bone: Problem details: Symptomatic treatment. Reassess after swelling goes down for need for intervention. Status: Acute (5) Triquetral fracture: Problem details: left conservative treatment Status: Acute (6) Morbid obesity with BMI of 45.0-49.9, adult: Problem details: 09/08/2023 BMI 45.3 Status: Acute (7) Lymphedema: Problem details: Chronic problem. Patient poorly tolerates compression but I urged her to do compression stockings and elevation as the primary treatment for lymphedema. She is also on a diuretic which may provide some benefit. Johnie stockings in the hospital if tolerated Status: Acute (8) Impaired mobility: Problem details: Currently NWB d/t left tibial plateau fracture. Due to left elbow injury is unable to offload pressure on the left. PT and OT to assess and treat current i njuries and disabilities and immobility. Status: Acute (9) Discharge planning issues: Problem details: Currently unable to get around well enough to return home. Status: Acute Subjective Date Seen: 05/13/24 Interval history: Daily Progress Note - Hospital Medicine Day #: 3 CC: fall with significant injury: Acute nondisplaced fracture of the triquetrum, Very minimally depressed lateral tibial plateau fracture, acute nondisplaced fracture of the radial head with a probable small left elbow joint effusion, mildly displaced nasal bone fractures. Requiring two assist; is NWB, requiring IV pain medication and external catheter. Apreciate the help of the orthopedic team. 24 HOUR UPDATE: pain is better with Toradol; acetaminophen, tramadol. Notable Labs, Micro, Rads, Interventions: no new labs vitals stable. Objective: feeling a little overwhelmed by the fall and not sure how she is going to be able to move. coherent; insightful. Vitals: see above Lungs: Clear. Cardiac: S1S2. wrist: left joint tenderness laterally; minimal swelling. can not supinate. NVI. left knee: tender laterally; joint effusion. nasal bridge: swollen; abrasions. Disposition/Potential discharge - omer will be: rehab stay (covered benefit?), self pay?, home with home health and family support. Today I spent 50minutes seeing the patient, reviewing Expanse and EPIC notes/diagnostics, discussing the care plan with our care time that includes social work, PT/OT, pharmacy, RT, senior living and documenting my impressions and plan in the medical record. Exam Const: Vital Signs, click to edit/add: Vital Signs - 24 hr 05/12/24 11:00 05/12/24 15:00 05/12/24 15:00 Temperature Pulse Rate [Right Pulse Oximeter] 61 61 61 Respiratory Rate 18 18 18 Blood Pressure [R FA] 127/85 159/104 H Blood Pressure [Ri ght Arm] Pulse Oximetry 91 93 Oxygen Delivery Me thod Room Air Room Air 05/12/24 19:00 05/12/24 23:00 05/12/24 23:00 Temperature 98.2 F Pulse Rate [Right Pulse Oximeter] 62 62 Respiratory Rate 16 16 20 Blood Pressure [R FA] Blood Pressure [Ri ght Arm] 131/80 Pulse Oximetry 91 Oxygen Delivery Me thod Room Air 05/13/24 03:00 05/13/24 07:00 Temperature 98.7 F 98.2 F Pulse Rate [Right Pulse Oximeter] 57 L 64 Respiratory Rate 18 18 Blood Pressure [R FA] 166/99 H 153/93 H Blood Pressure [Ri ght Arm] Pulse Oximetry 91 92 Oxygen Delivery Me thod Room Air Room Air
--- NOTE | 2024-05-13 11:42 | P.ORCN_ITS ---
History of Present Illness HPI Date Seen: 05/13/24 Chief complaint: Fall Narrative: Marylin Casillas is a pleasant 73 year old female who was admitted to [facility] after a fall from a standing height on 05/12/2024. She was vacuuming, the cord wrapped around her foot, she tripped, and landed on to her outstretched left arm as well as to some degree her face. She had difficulty mobilizing. She had to screw her body across the floor to get to her phone to call her . She was eventually brought to [facility] via EMS. Here, she underwent multiple imaging studies which revealed a left lateral tibial plateau fracture, left triquetral fracture, and left radial head intra- articular fracture. Given these were musculoskeletal injuries, Orthopedics was consulted to assist with recommendations of offers is not and ongoing management of the musculoskeletal injuries. Of note, she does have a significant history of osteoarthritis of the left patellofemoral joint. She has been contemplating knee replacement surgery for that. That pain is now much worse after the fall. She reports she cannot bear weight on her left knee. It also hurts to move her left wrist and her left elbow. She sustained a fracture of her nose. She had a bloody nose which has stopped. She also has an abrasion over her nose. [facility] Medical History (Updated 05/13/24 @ 10:27 by Trixie Lowe MD) Osteoarthritis of left knee ?M17.12 - Unilateral primary osteoarthritis, left knee (ICD-10) Impaired mobility ?Z74.09 - Other reduced mobility (ICD-10) Anterior shoulder dislocation ?S43.016A - Anterior dislocation of unspecified humerus, initial encounter (ICD-10) Morbid obesity with BMI of 45.0-49.9, adult ?E66.01 - Morbid (severe) obesity due to excess calories (ICD-10) ?Z68.42 - Body mass index [BMI] 45.0-49.9, adult (ICD-10) Lymphedema ?I89.0 - Lymphedema, not elsewhere classified (ICD-10) GERD (gastroesophageal reflux disease) ?K21.9 - Gastro-esophageal reflux disease without esophagitis (ICD-10) Hyperlipidemia ?E78.5 - Hyperlipidemia, unspecified (ICD-10) Hypertension ?I10 - Essential (primary) hypertension (ICD-10) Infection due to severe acute respiratory syndrome coronavirus 2 (SARS-CoV-2) ?U07.1 - COVID-19 (ICD-10) Surgical History History of arthroscopy of right shoulder ?Z98.890 - Other specified postprocedural states (ICD-10) History of phacoemulsification of cataract of right eye with intraocular lens implantation (10/28/20) ?Z98.41 - Cataract extraction status, right eye (ICD-10) ?Z96.1 - Presence of intraocular lens (ICD-10) History of phacoemulsification of cataract of left eye with intraocular lens implantation (11/11/20) ?Z98.42 - Cataract extraction status, left eye (ICD-10) ?Z96.1 - Presence of intraocular lens (ICD-10) Social History Narrative: She lives with her in [place]. They live in a house with 3-4 steps to get in. She can then live on 1 level. Code status is full. She rarely drinks alcohol. She smokes about 1 pack of cigarettes a month What is your current living situation?: I presently have a place to live Problems where you live: no known problems Problems where you live details: n/a In the past 12 months, utilities in danger of being shut off: no In past 12 months, lack of transportation kept you from medical appts, meetings, work, or getting things needed for daily living: no In the past 12 mos, have been you worried that your food would run out before you had money to buy more?: never true In the past 12 mos, the food you bought just didn't last and you didn't have money to buy more?: never true Highest level of school completed/degree received: high school graduate Smoking Status: Light tobacco smoker What tobacco products do you use: cigarettes Do you use any of these nicotine containing products: None Second hand tobacco smoke exposure: No How often do you have a drink containing alcohol: monthly or less How often do you have six or more drinks on one occasion: Never AUDIT-C Alcohol total score: 1 Non-prescribed substance use: denies use Caffeine: Yes How often does anyone, including family, friends and others, physically hurt you : never How often does anyone, including family, friends and others, insult or talk down to you: never How often does anyone, including family, friends and others, threaten you with harm: never How often does anyone, including family, friends and others, scream or curse at you: never service: No Meds Home Medications and Allergies Home Medications ?Medication ?Instructions ?Recorded ?Confirmed ?Type losartan 100 mg tablet 100 mg PO DAILY 04/25/22 05/11/24 History omeprazole 20 mg capsule,delayed 20 mg PO DAILY 04/25/22 05/11/24 History release rosuvastatin 5 mg tablet 5 mg PO DAILY 04/25/22 05/11/24 History psyllium husk 0.4 gram capsule 0.8 g PO DAILY PRN 06/02/23 05/12/24 History (Fiber (psyllium husk)) vitamins A,C,O-dbfd-qmbgks 4,296 1 cap PO BID 06/02/23 05/12/24 History mcg-226 mg-90 mg capsule (PreserVision AREDS) furosemide 20 mg tablet 20 mg PO QAM 06/13/23 05/11/24 History citalopram 10 mg tablet 10 mg PO QAM 05/11/24 05/11/24 History Allergies Allergy/AdvReac Type Severity Reaction Status Date / Time Sulfa (Sulfonamide Allergy Mild Hives Verified 09/08/23 10:17 Antibiotics) Dilaudid Allergy Unknown Hallucinati Unverified 07/12/23 08:56 ons hydromorphone (Dilaudid) Allergy Unknown Hallucinati Unverified 09/08/23 10:17 ons terbinafine Allergy Unknown Hives Unverified 09/08/23 10:17 Opioids - Morphine Analogues Allergy vomiting Verified 09/08/23 10:17 Ortho Exam Narrative Exam Narrative: She is alert and oriented x3. No acute distress. Resting supine in the hospital bed. She provides the history. She is cooperative with the exam. There is an abrasion over the anterior aspect of her nose as well as some ecchymosis around her nose and left orbit. Regarding the left upper extremity, she has a wrist brace in place. She is severely tender palpation of the dorsal left wrist near the triquetrum. There is mild swelling about the wrist in general. Attention to the left elbow shows some pain over the lateral aspect of the radial head. Some pain with extreme supination although this also hurts her wrist. Neurologic intact distally in the radial, ulnar, and median nerve distribution to sensory light touch and motor function. 2+ radial pulse. Digit pink, warm, brisk cap refill. Regarding left knee, there is generalized swelling about the knee, leg, ankle and foot. A palpable DP and PT pulse. Neurologic intact in superficial and deep peroneal as well as plantar distribution to sensory light touch and motor function. Range of motion of the knee produces lateral pain. Tender palpation lateral knee region. No lacerations or abrasions otherwise noted. Strength and gait/station deferred given her acute fracture. Const Vital Signs, click to edit/add: Vital Signs - 24 hr 05/12/24 15:00 05/12/24 15:00 05/12/24 19:00 Temperature 98.2 F Pulse Rate [Right Pulse Oximeter] 61 61 62 Respiratory Rate 18 18 16 Blood Pressure [R FA] 159/104 H Blood Pressure [Right Arm] 131/80 Pulse Oximetry 93 91 Oxygen Delivery Method Room Air Room Air 05/12/24 23:00 05/12/24 23:00 05/13/24 03:00 Temperature 98.7 F Pulse Rate [Right Pulse Oximeter] 62 57 L Respiratory Rate 16 20 18 Blood Pressure [R FA] 166/99 H Blood Pressure [Right Arm] Pulse Oximetry 91 Oxygen Delivery Method Room Air 05/13/24 07:00 Temperature 98.2 F Pulse Rate [Right Pulse Oximeter] 64 Respiratory Rate 18 Blood Pressure [R FA] 153/93 H Blood Pressure [Right Arm] Pulse Oximetry 92 Oxygen Delivery Method Room Air Results Labs Labs: Laboratory Results - last 48 hr 05/12/24 01:09 WBC 5.90 RBC 4.22 Hgb 13.2 Hct 41.1 MCV 97 MCH 31 MCHC 32 RDW Coeff of Trip 13.2 Plt Count 122 L Neut % (Auto) 66.6 Lymph % (Auto) 21.7 Russell % (Auto) 8.5 Eos % (Auto) 2.5 Baso % (Auto) 0.5 Neut # (Auto) 3.93 Lymph # (Auto) 1.28 Russell # (Auto) 0.50 Eos # (Auto) 0.15 Baso # (Auto) 0.03 Abs Immat Gran (auto) 0.01 Imm/Tot Granulo (auto) 0.2 Sodium 137 Potassium 4.0 Chloride 103 Carbon Dioxide 30 Anion Gap 4 L BUN 24 Creatinine 0.6 Estimated Creat Clear 43.91 Estimated GFR 95 Glucose 98 Calcium 8.9 C-Reactive Protein < 0.5 L Diagnostic results Additional Comments: Multiple radiographic studies were ordered by different provider and the knee from [facility] dated 05/11/2024 as follows: - two views left forearm. This demonstrates a nondisplaced intra-articular radial head fracture seen best on the AP view. Small effusion is noted. - three views left wrist. This demonstrates some calcifications dorsal wrist region but difficult the identify clearly the pathology. CT scan was also obtained of the left wrist. Incidentally, chondrocalcinosis seen of the TFC region. - three views left knee reveals a subtle laterally depressed tibial plateau fracture. Also moderate size osteophytosis all 3 compartments. Severe patellofemoral osteoarthrosis with [id number] joint space loss also visualized. Arteriosclerosis of the femoral, popliteal arteries noted. The CT scan of the left wrist from 05/12/2024 was ordered by different provider and reviewed by me. This demonstrates acute nondisplaced fracture of the triquetrum. No other acute fractures noted. CT scan left knee from 05/12/2024 was ordered by different provider reviewed by me. This also shows a minimally depressed lateral tibial plateau fracture and severe patellofemoral osteoarthrosis along with tricompartmental osteophytosis. Assessment and Plan Assessment and plan (1) Status post fall: Problem comment: DOI: 05/12/24. tripped over vacuum airplane cleaner cord. left: tibial plateau fx, left wrist/elbow fracture; broken nose. all non-operative; conservative care; will be six weeks of NWB - rehab candidate d/w ortho and is high risk for VTE; will do 10mg xarelto daily. Status: Acute Total time spent: Total time spent is greater than 50% in coordination of care (as documented) at patient's floor/unit and/or counseling patient: (2) Tibial plateau fracture, left: Problem comment: conservative care; will be six weeks of NWB Status: Acute Total time spent: Total time spent is greater than 50% in coordination of care (as documented) at patient's floor/unit and/or counseling patient: (3) Radial head fracture, closed: Problem comment: Nondisplaced radial head fracture. Conservative management. Status: Acute Total time spent: Total time spent is greater than 50% in coordination of care (as documented) at patient's floor/unit and/or counseling patient: (4) Fracture of nasal bone: Problem comment: Symptomatic treatment. Reassess after swelling goes down for need for intervention. Status: Acute Total time spent: Total time spent is greater than 50% in coordination of care (as documented) at patient's floor/unit and/or counseling patient: (5) Triquetral fracture: Problem comment: left conservative treatment Status: Acute Total time spent: Total time spent is greater than 50% in coordination of care (as documented) at patient's floor/unit and/or counseling patient: (6) Morbid obesity with BMI of 45.0-49.9, adult: Problem comment: 09/08/2023 BMI 45.3 Status: Acute Total time spent: Total time spent is greater than 50% in coordination of care (as documented) at patient's floor/unit and/or counseling patient: (7) Lymphedema: Problem comment: Chronic problem. Patient poorly tolerates compression but I urged her to do compression stockings and elevation as the primary treatment for lymphedema. She is also on a diuretic which may provide some benefit. Johnie stockings in the hospital if tolerated Status: Acute Total time spent: Total time spent is greater than 50% in coordination of care (as documented) at patient's floor/unit and/or counseling patient: (8) Impaired mobility: Problem comment: Currently NWB d/t left tibial plateau fracture. Due to left elbow injury is unable to offload pressure on the left. PT and OT to assess and treat current injuries and disabilities and immobility. Status: Acute Total time spent: Total time spent is greater than 50% in coordination of care (as documented) at patient's floor/unit and/or counseling patient: (9) Discharge planning issues: Problem comment: Currently unable to get around well enough to return home. Status: Acute Total time spent: Total time spent is greater than 50% in coordination of care (as documented) at patient's floor/unit and/or counseling patient: (10) Osteoarthritis of left knee: Problem comment: severe patellofemoral arthritis. Was doing okay until she fell today and now is unable to bear weight on her left knee Status: Acute Plan I had a good discussion today with the patient. She is somewhat emotionally labile and understandably sad. Ultimately, she understands the significance. The good news is nonoperative management is reasonable for all 3 fractures at this time. Left radial head fracture can be nonoperative. Sling for comfort. May come out of the sling as desired. Gentle elbow range of motion including pronation/supination as tolerated. Left triquetral fracture-nonoperative management is appropriate. Wrist brace for comfort. Likely will benefit from this brace times 4-6 weeks. Can come out of the brace as pain allows. Finger range of motion as tolerated. Left tibial plateau fracture. Nonweightbearing x6 weeks. Then anticipate partial weight-bearing left lower extremity thereafter. Hinged knee brace can be applied currently. This might help give her some support and allow her to a pull on this to help move her leg. Range of motion can be opened while sitting or lying in bed. She can lock it at approximately 20-30 degrees of flexion while mobilizing if desired. But because she is nonweightbearing, she can leave the range of motion open. Weightbearing will be difficult. A platform walker might be helpful. I do think it is safe for her to bear load through her left elbow/olecranon and through the forearm as she tolerates. Alternatively, a right-handed 4 prong walker/cane could be considered. Might be difficult for her mobilization instability. She should follow up in our clinic in 2-4 weeks. Repeat clinical check. Anticipate initiating physical therapy. I would anticipate that she would benefit from a rehab stay/jail facility stay at this time. It will be difficult for her to mobilize otherwise.
--- NOTE | 2024-05-13 12:45 | PC.SOCIAL ---
Addendum entered by PAIGE Mathews 05/13/24 14:25: Discharge planning: [facility] is reviewing pt's referral. Mary from [facility] shared that if they can accept her they might not be able to admit her until Monday due to discharges/bed availability on their TCU this week. Social work to follow-up as needed. Original Note: Discharge planning: rollway worker met with pt at length to discuss discharge planning. Pt was having some difficulty understanding the difference between inpatient vs. observation status. Pt is currently in observation status. Pt was hoping she could stay in the hospital until the end of the week. rollway worker spoke with the physician on duty about the situation and she plans to go back into the pt's room this afternoon to talk more with her about plans for length of care in the hospital. Pt is being recommended for short-term rehab after her hospital stay. Pt was provided with the [facility] list. Pt states that [facility] in [place] would be her first choice for placement. Pt's second choice for placement is [facility] in [place] and her third choice would be [facility] in [place]. rollway worker spoke to Ileana in Admissions at [facility] in [place] and she stated they are full right now on their TCU and will have no beds this week. rollway worker then checked in with Marko in Client Customer Manager/Admissions at [facility] who shared that they are also full on their TCU and will have no openings this week. rollway worker then checked on TCU bed availability with Mary in Admissions at [facility] in [place]. Social work to follow-up as needed. Social work to follow-up as needed.
[2024-05-13] MEDS: SODIUM CHLORIDE 0.9 % (FLUSH) 10 ML SYRINGE 5 ML IVF ×2 (13:09→20:07)
--- NOTE | 2024-05-13 19:10 | PC.NURSE ---
End of shift report [id number]: Pt AxOx4, cooperative, and pleasant to cares. Pain to left arm/wrist and left knee reported, see MAR for interventions. Quality Control Technician also utilized reposition, rest, and ice. Pt requested L arm to be elevated with pillows versus using the sling. A1-2 rolling walker with platform, knee immobilizer, pivot to the chair and commode. Facial bruising and swelling from fall, patient has bruising under left eye as well. CMS intact to left hand, patient able to move fingers. LLE elevated on pillow. External catheter removed. Continent of the bladder and bowels. Tolerating regular diet/fluids well. Using call light appropriately. Bed bath given this evening. Pt appears resting watching television with call light in reach.
[2024-05-13] MEDS: ENOXAPARIN 40 MG/0.4 ML INJ SUBCUT (20:06)
[2024-05-14 02:53] VITALS: BP 162/99; PULSE 60; RESP 16; TEMP 36.6; O2SAT 92
--- NOTE | 2024-05-14 03:33 | PC.NURSE ---
Pt rested well this night, stating she was comfortable. Pain controlled. Pt able to pivot to bedside Commode.
[2024-05-14 06:28] LABS: Hematocrit 39.1 % (33.0-51.0); Hemoglobin* 12.4 gm/dL (12.0-16.0); Mean Corpuscular HGB Conc 32 gm/dL (32-36); Mean Corpuscular Hemoglobin 31 pg (26-34); Mean Corpuscular Volume 99 fL (80-100); Platelet Count* 121 K/uL (140-440); Red Blood Count 3.97 m/uL (4.00-5.20); Slide Review Reflex No; White Blood Count* 3.81 K/uL (4.50-11.00)
[2024-05-14 06:41] LABS: Chloride* 107 mmol/L (96-114); Sodium* 140 mmol/L (135-149)
[2024-05-14 06:42] LABS: Potassium* 4.3 mmol/L (3.6-5.1)
[2024-05-14 06:44] LABS: Blood Urea Nitrogen* 31 mg/dL (7-30); Creatinine* 0.7 mg/dL (0.5-1.5); Est. Creatinine Clearance* 43.91
[2024-05-14 06:45] LABS: Anion Gap 5 mEq/L (7-15); Carbon Dioxide* 28 mmol/L (20-32); Estimated Glomerular Filt Rate 92 ml/min; Glucose* 101 mg/dL (60-115)
[2024-05-14] MEDS: OMEPRAZOLE 20 MG CAPSULE DR PO (06:58)
[2024-05-14] MEDS: PSYLLIUM HUSK (WITH SUGAR) 12 GM PACKET PO (08:20)
[2024-05-14] MEDS: MULTIVITAMIN/MINERALS 1 TABLET 1 TAB PO ×2 (08:20→21:00)
[2024-05-14] MEDS: ACETAMINOPHEN 650 MG TABLET ER 1300 MG PO ×2 (08:21→16:22)
[2024-05-14] MEDS: FUROSEMIDE 20 MG TABLET PO (08:21)
[2024-05-14] MEDS: LOSARTAN POTASSIUM 50 MG TABLET 100 MG PO (08:21)
[2024-05-14] MEDS: ROSUVASTATIN CALCIUM 10 MG TABLET 5 MG PO (08:22)
[2024-05-14] MEDS: CITALOPRAM HYDROBROMIDE 20 MG TABLET 10 MG PO (08:22)
[2024-05-14] MEDS: SODIUM CHLORIDE 0.9 % (FLUSH) 10 ML SYRINGE 5 ML IVF ×2 (08:24→20:57)
[2024-05-14] MEDS: KETOROLAC 30 MG/ML inj IVP ×3 (08:35→22:10)
[2024-05-14 10:45] VITALS: BP 163/83; PULSE 62; RESP 20; TEMP 36.4; O2SAT 92
--- NOTE | 2024-05-14 10:53 | PM.IMPN1 ---
Progress Note: A&P Assessment and plan (1) Status post fall: Problem details: DOI: 05/12/24. tripped over vacuum film cleaner cord left: tibial plateau fx, left wrist/elbow fracture; broken nose. all non-operative; conservative care; will be six weeks of NWB - rehab candidate d/w ortho and is high risk for VTE; will treat with 10mg xarelto daily Status: Acute (2) Tibial plateau fracture, left: Problem details: conservative care; will be six weeks of NWB Status: Acute (3) Radial head fracture, closed: Problem details: Nondisplaced radial head fracture. Conservative management. Status: Acute (4) Fracture of nasal bone: Problem details: Symptomatic treatment. Reassess after swelling goes down for need for intervention. Status: Acute (5) Triquetral fracture: Problem details: left conservative treatment Status: Acute (6) Morbid obesity with BMI of 45.0-49.9, adult: Problem details: 09/08/2023 BMI 45.3 Status: Acute (7) Lymphedema: Problem details: Chronic problem. Patient poorly tolerates compression but I urged her to do compression stockings and elevation as the primary treatment for lymphedema. She is also on a diuretic which may provide some benefit. Johnie stockings in the hospital if tolerated Status: Acute (8) Impaired mobility: Problem details: Currently NWB d/t left tibial plateau fracture. Due to left elbow injury is unable to offload pressure on the left. PT and OT to assess and treat current injuries and disabilities and immobility. Status: Acute (9) Discharge planning issues: Problem details: Currently unable to get around well enough to return home. Status: Acute (10) Osteoarthritis of left knee: Problem details: severe patellofemoral arthritis. Was doing okay until she fell today and now is unable to bear weight on her left knee Status: Acute Plan - to SNF when bed available - family updated at bedside Subjective Date Seen: 05/14/24 Interval history: Cami was admitted to the hosptial on 05/11 after a mechanical fall with subsequent fractures of her L tibial plateau, L triquetrum, L radial head, nasal bone. Required IV pain management and thurston catheter during initial part of her stay. Seen by Orthopedic Surgery; fractures are all nonoperative. Continues to require 2 person assist with ADLs, working with therapies and SNF stay recommended. This morning, Marylin Ashford has no concerns for hospitalist team. Exam Narrative: Exam Narrative: GEN: Alert and oriented, sitting comfortably in bedside chair HEENT: Normal external ears, EOMIs bilaterally, no scleral icterus, + abrasions over nose, hemostatic CV: RRR, No concerning murmurs, rubs, or gallops R: LCTA bilaterally without concerning wheezing Ext: Wearing brace over left lower extremity and left upper extremity, normal sensation and capillary refill of distal extremities, chronic lymphedema is baseline Neuro: No focal deficits on limited exam, therapy not observed Psych: Appropriate Const: Vital Signs, click to edit/add: Vital Signs - 24 hr 05/13/24 11:00 05/13/24 14:50 05/13/24 19:13 Temperature 97.8 F 98.1 F 98 F Pulse Rate [Right Pulse Oximeter] 65 62 62 Respiratory Rate 18 18 16 Blood Pressure [R FA] 166/97 H 154/108 H 128/83 Pulse Oximetry 92 92 92 Oxygen Delivery Me thod Room Air Room Air Room Air 05/13/24 20:07 05/13/24 22:16 05/13/24 22:19 Temperature 98 F 98.5 F Pulse Rate [Right Pulse Oximeter] 64 64 Respiratory Rate 16 16 Blood Pressure [R FA] 165/94 H Pulse Oximetry 94 Oxygen Delivery Me thod Room Air 05/13/24 23:16 05/14/24 02:53 Temperature 98.5 F 97.9 F Pulse Rate [Right Pulse Oximeter] 60 Respiratory Rate 16 Blood Pressure [R FA] 162/99 H Pulse Oximetry 92 Oxygen Delivery Me thod Room Air Labs Labs: Laboratory Results - last 24 hr 05/14/24 05:39 WBC 3.81 L RBC 3.97 L Hgb 12.4 Hct 39.1 MCV 99 MCH 31 MCHC 32 Plt Count 121 L Sodium 140 Potassium 4.3 Chloride 107 Carbon Dioxide 28 Anion Gap 5 L BUN 31 H Creatinine 0.7 Estimated Creat Clear 43.91 Estimated GFR 92 Glucose 101 Calcium 9.0
--- NOTE | 2024-05-14 12:21 | PC.SOCIAL ---
Addendum entered by PAIGE Mathews 05/14/24 16:29: Discharge planning: Pt's transportation time still needs to be scheduled with EMS in the morning. Pt needs to be to the facility by 2pm. Social work to follow-up as needed. Addendum entered by PAIGE Mathews 05/14/24 16:24: Discharge planning: [employer] worker talked to the pt about non-emergent EMS transportation for tomorrow. Pt's insurance may cover the transport cost due to her non-weight bearing status; however, this social sciences department chair did have the pt sign the non-emergent wheelchair transportation form. The pt is willing to pay the $113.00(92+7x3= 113) non-emergent EMS transportation fee if her insurance does not cover the cost because she does not feel she would be able to get in and out of an automobile safely with her left leg being non-weight bearing right now. [employer] worker gave the non-emergent EMS transportation form to the charge nurse on duty who then placed the form in the pt's file. Social work to follow-up as needed. Addendum entered by PAIGE Mathews 05/14/24 14:57: Discharge planning: Pt called this worker this afternoon and said that her [id number] was just at the hospital visiting her and told her that her that her mother, who has been at [facility] in [place] for short-term rehab, is discharging on Monday, so the pt thought that she might be able to stay in the hospital and go to [facility] in [place] on Monday. [employer] worker explained to the pt that she is ready for discharge as of today and we have an accepting facility at [facility] with a private room/private bathroom for tomorrow(Monday). [employer] worker explained that even if [facility] in [place] did have a TCU opening coming up on Monday that doesn't mean that she would be officially accepted there and they might even have a waitlist. The worker in admissions at [facility] in [place] that this worker spoke to yesterday stated that they were full and had no beds coming available either. [employer] worker explained that if we have an accepting facility for the pt and she is ready for discharge she needs to go to that facility and can look at transferring to another facility after she gets to [facility] if she would like to do that. Pre-admission screening was completed and secure emailed to Mary at [facility]. [id number]. Social work to follow-up as needed. Original Note: Discharge planning: Pt was accepted to [facility] for short-term rehab tomorrow(Monday). The room is a private room/private bathroom, which pt is pleased about. [facility] did want this worker to talk to the pt about needing to find her own transportation for follow-up appointments that she may have while she is at the [facility]. Pt says that she doesn't plan on attending any outpatient appointments while she is at rehab, as she wants to focus on therapies and being able to walk again. Pt said she will plan to do her follow-up appointments after she is done with rehab. Pt also stated that she would like to transport from the hospital to [facility] via non-emergent EMS. Social work to follow-up as needed.
[2024-05-14 15:00] VITALS: BP 160/100; PULSE 53; RESP 18; TEMP 36.7; O2SAT 93
--- NOTE | 2024-05-14 18:59 | PC.NURSE ---
End of shift [id number] ? Pt alert, oriented, cooperative. Pt up with assist of x1 walker/gait belt and stand pivot to bedside commode. Tolerating NWB on L leg per MD order. Continent of bowel and bladder during shift. Pt tolerating RA, regular diet/fluids. Reported pain in L arm/knee as 5/10, given medication per MAR to improve pt comfort. Knee immobilizer used on L leg per MD order, ice pack in place when at rest, extremity elevated as tolerated. Family and visitors at bedside during majority of shift. Pt appears to be resting comfortably at end of shift with call light within reach.
[2024-05-14 19:23] VITALS: BP 132/86; PULSE 57; RESP 18; TEMP 36.7; O2SAT 93
[2024-05-14] MEDS: ENOXAPARIN 40 MG/0.4 ML INJ SUBCUT (20:56)
[2024-05-14 22:29] VITALS: BP 130/90; PULSE 56; RESP 16; TEMP 36.5; O2SAT 94
[2024-05-14 22:31] VITALS: PULSE 56; RESP 16
[2024-05-15] MEDS: ACETAMINOPHEN 650 MG TABLET ER 1300 MG PO ×2 (00:06→08:50)
[2024-05-15 03:00] VITALS: BP 155/107; PULSE 62; RESP 18; TEMP 36.7; O2SAT 91
[2024-05-15] MEDS: KETOROLAC 30 MG/ML inj IVP (06:26)
[2024-05-15] MEDS: OMEPRAZOLE 20 MG CAPSULE DR PO (06:26)
[2024-05-15 06:27] LABS: Basophils Percent Auto 0.6 % (0.0-3.0); Hematocrit 39.1 % (33.0-51.0); Hemoglobin* 12.4 gm/dL (12.0-16.0); Immature Granulocytes Pct Auto 0.3 %; Lymphocytes Percent Auto 26.4 % (20-44); Mean Corpuscular HGB Conc 32 gm/dL (32-36); Mean Corpuscular Hemoglobin 31 pg (26-34); Mean Corpuscular Volume 99 fL (80-100); Monocytes Percent Auto 9.1 % (0.0-11.0); Neutrophils Percent Auto 58.6 % (42.0-72.0); Platelet Count* 115 K/uL (140-440); RDW Coefficient of Variation % 13.2 % (11.5-15.5); Red Blood Count 3.96 m/uL (4.00-5.20); White Blood Count* 3.63 K/uL (4.50-11.00)
[2024-05-15 06:40] LABS: Slide Review Reflex No
--- NOTE | 2024-05-15 06:52 | PC.NURSE ---
End of shift note [id number]: Pt A&Ox4 and able to make needs known. She is only pivot transferring with assist of 1 with walker and gait belt at this time due to NWB to LLE. VSS- pt has been afebrile and on RA throughout the shift. No c/o CP or N/V noted. Scheduled and PRN pain medications administered to treat pain to LUE and LLE due to fractures. Immobilizer worn to LLE when out of bed. Pt tolerating regular diet. Home TEDs worn to BLEs. CMS to LUE and LLE intact. Pt continent of bladder using BSC. Bed alarm on for safety and call light within reach. Pt reports she slept well overnight.
[2024-05-15 06:53] LABS: Albumin* 3.5 g/dL (3.3-5.0)
[2024-05-15 06:54] LABS: Chloride* 106 mmol/L (96-114); Potassium* 4.5 mmol/L (3.6-5.1); Sodium* 140 mmol/L (135-149)
[2024-05-15 06:56] LABS: Anion Gap 7 mEq/L (7-15); Aspartate Amino Transferase* 19 U/L (12-35); Bilirubin Total* 0.5 mg/dL (0.1-1.5); Blood Urea Nitrogen* 33 mg/dL (7-30); Carbon Dioxide* 27 mmol/L (20-32); Creatinine* 0.7 mg/dL (0.5-1.5); Est. Creatinine Clearance* 43.91; Estimated Glomerular Filt Rate 92 ml/min; Total Protein* 5.8 g/dL (6.0-8.3)
[2024-05-15 06:57] LABS: Alanine Aminotransferase* 16 U/L (4-35); Alkaline Phosphatase* 52 U/L (40-150); Calcium* 8.8 mg/dL (8.4-10.6); Glucose* 97 mg/dL (60-115)
[2024-05-15 07:00] VITALS: BP 181/98; PULSE 60; RESP 16; TEMP 36.4; O2SAT 96
[2024-05-15] MEDS: FUROSEMIDE 20 MG TABLET PO (08:50)
[2024-05-15] MEDS: CITALOPRAM HYDROBROMIDE 20 MG TABLET 10 MG PO (08:50)
[2024-05-15] MEDS: ROSUVASTATIN CALCIUM 10 MG TABLET 5 MG PO (08:50)
[2024-05-15] MEDS: SODIUM CHLORIDE 0.9 % (FLUSH) 10 ML SYRINGE 5 ML IVF (08:51)
[2024-05-15] MEDS: LOSARTAN POTASSIUM 50 MG TABLET 100 MG PO (08:51)
[2024-05-15] MEDS: MULTIVITAMIN/MINERALS 1 TABLET 1 TAB PO (08:51)
[2024-05-15] MEDS: PSYLLIUM HUSK (WITH SUGAR) 12 GM PACKET PO (08:51)
--- NOTE | 2024-05-15 09:33 | PM.DS1 ---
DS: Providers Provider Date Seen: 05/15/24 Date of admission: 05/13/24 09:50 Primary care physician: Lindy Sr DO Admitting Clinician: Balta Santos MD Consults: OT, PT, SW, Orthopedic Surgery Attending Physician on discharge: Kari Heredia MD Date of Discharge: 05/15/24 DS: Diagnosis Discharge Diagnosis (1) Status post fall: Status: Acute Problem details: DOI: 05/12/24. tripped over vacuum tube cleaner cord left: tibial plateau fx, left wrist/elbow fracture; broken nose. all non-operative; conservative care; will be six weeks of NWB - rehab candidate d/w ortho and is high risk for VTE; will treat with 10mg xarelto daily (2) Tibial plateau fracture, left: Status: Acute Problem details: conservative care; will be six weeks of NWB (3) Radial head fracture, closed: Status: Acute Problem details: Nondisplaced radial head fracture. Conservative management. (4) Fracture of nasal bone: Status: Acute Problem details: Symptomatic treatment. Reassess after swelling goes down for need for intervention. (5) Triquetral fracture: Status: Acute Problem details: left conservative treatment (6) Morbid obesity with BMI of 45.0-49.9, adult: Status: Acute Problem details: 09/08/2023 BMI 45.3 (7) Lymphedema: Status: Acute Problem details: Chronic problem. Patient poorly tolerates compression but I urged her to do compression stockings and elevation as the primary treatment for lymphedema. She is also on a diuretic which may provide some benefit. Johnie stockings in the hospital if tolerated (8) Impaired mobility: Status: Acute Problem details: Currently NWB d/t left tibial plateau fracture. Due to left elbow injury is unable to offload pressure on the left. PT and OT to assess and treat current injuries and disabilities and immobility. (9) Discharge planning issues: Status: Acute Problem details: Currently unable to get around well enough to return home. (10) Osteoarthritis of left knee: Status: Acute Problem details: severe patellofemoral arthritis. Was doing okay until she fell today and now is unable to bear weight on her left knee DS: Summary Hospital Course Hospital Course: Cami was admitted on 05/11 after a mechanical fall with subsequent fractures of her L tibial plateau, L triquetrum, L radial head, nasal bone. Required IV pain management and thurston catheter during initial part of her stay. Seen by Dr. Atkinson of Orthopedic Surgery; fractures all nonoperative. NWB on LLE at this time. Given physical limitations of the above fractures, SNF stay recommended upon discharge. Patient was medically appropriate for SNF discharge on 05/15/24. She will be anticoagulated with 28 days of Xarelto upon discharge given fractures and immobility. Time Spent with Patient Time attestation: Total time spent providing and/or coordinating discharge services: Time spent: Greater than 30 minutes Specific discharge activities: medication reconciliation, collaboration with multidisciplinary team Exam Narrative: Exam Narrative: GEN: Alert and oriented, nontoxic HEENT: Abrasions over nasal bridge that are all hemostatic CV: RRR, soft systolic murmur without concerning features R: LCTA bilaterally without concerning wheezing, air movement adequate Ext: + LE edema, baseline/chronic, wearing L knee immobilizer. +Brace on L wrist, intact sensation and capillary refill of L fingers Skin: No other concerning skin lesions or rashes on exposed skin Neuro: Nonfocal Psych: Appropriate Const: Vital Signs, click to edit/add: Vital Signs - 24 hr 05/14/24 10:45 05/14/24 15:00 05/14/24 19:23 Temperature 97.6 F 98.0 F 98.0 F Pulse Rate [Right Pulse Oximeter] 62 53 L 57 L Respiratory Rate 20 18 18 Blood Pressure [R FA] 163/83 H 160/100 H 132/86 Pulse Oximetry 92 93 93 Oxygen Delivery Me thod Room Air Room Air Room Air 05/14/24 22:29 05/14/24 22:31 05/15/24 03:00 Temperature 97.7 F 98.0 F Pulse Rate [Right Pulse Oximeter] 56 L 56 L 62 Respiratory Rate 16 16 18 Blood Pressure [R FA] 130/90 H 155/107 H Pulse Oximetry 94 91 Oxygen Delivery Me thod Room Air Room Air DS: Data Data Completed and Pending Labs on day of discharge: Labs from last 24 hours 05/15/24 05:39 WBC 3.63 L RBC 3.96 L Hgb 12.4 Hct 39.1 MCV 99 MCH 31 MCHC 32 RDW Coeff of Trip 13.2 Plt Count 115 L Neut % (Auto) 58.6 Lymph % (Auto) 26.4 Wharton % (Auto) 9.1 Eos % (Auto) 5.0 Baso % (Auto) 0.6 Neut # (Auto) 2.10 Lymph # (Auto) 1.00 Wharton # (Auto) 0.30 Eos # (Auto) 0.20 Baso # (Auto) 0.00 Abs Immat Gran (auto) 0.00 Imm/Tot Granulo (auto) 0.3 Sodium 140 Potassium 4.5 Chloride 106 Carbon Dioxide 27 Anion Gap 7 BUN 33 H Creatinine 0.7 Estimated Creat Clear 43.91 Estimated GFR 92 Glucose 97 Calcium 8.8 Total Bilirubin 0.5 AST 19 ALT 16 Alkaline Phosphatase 52 Total Protein 5.8 L Albumin 3.5 Discharge Plan Discharge Disposition: [facility] Date of Admission: 05/13/24 09:50 Attending Provider on Discharge: Kari Heredia Consulting Providers: Bobo Atkinson Primary Care Provider: Lindy Sr Condition: Unchanged Discharge Medications: New tramadol 50 mg Tablet 50 mg PO Q6H PRNQty: 20 0RF acetaminophen 650 mg Tablet Extended Release 1,300 mg PO Q8H Qty: 90 0RF Xarelto 10 mg tablet 10 mg PO DAILY Qty: 28 0RF Rx Instructions: for 35 days Continued psyllium husk [Fiber (psyllium husk)] 0.4 gram capsule 0.8 g PO DAILY PRN losartan 100 mg tablet 100 mg PO DAILY Patient Comments: TAKE ONE TABLET BY MOUTH EVERY DAY ALONG WITH THE HYDROCHLOROTHIAZIDE omeprazole 20 mg capsule,delayed release(DR/EC) 20 mg PO DAILY Patient Comments: TAKE ONE CAPSULE BY MOUTH EVERY DAY BEFORE A MEAL rosuvastatin 5 mg tablet 5 mg PO DAILY Patient Comments: TAKE ONE TABLET BY MOUTH AT BEDTIME PreserVision AREDS 4,296 mcg-226 mg-90 mg capsule 1 cap PO BID furosemide 20 mg tablet 20 mg PO QAM citalopram 10 mg tablet 10 mg PO QAM Discharge Orders: Discharge Order (Routine); Ordered 05/15/24 Ordered By: Kari Heredia Additional Instructions: For therapy teams at [facility] (per Dr. Atkinson): L tibial plateau fracture: Nonweightbearing x6 weeks. Then anticipate partial weight-bearing left lower extremity thereafter. Hinged knee brace can be applied currently. This might help give her some support and allow her to a pull on this to help move her leg. Range of motion can be opened while sitting or lying in bed. She can lock it at approximately 20-30 degrees of flexion while mobilizing if desired. But because she is nonweightbearing, she can leave the range of motion open. Activity Level: No Weight Bearing Activity Detail: per PT and OT Discharge Diet: Regular Follow Up Appointments: Lindy Sr DO [Primary Care Provider] - Faisal Gibson PA-C [Physician Receptionist Scheduler] - (2-3 week Orthopedic clinic f/u) Forms: [facility] Info Instructions Admit to: SNF Discharge Potential: Good Length of Stay: <30 days Can use facility standing orders?: Yes Code Status: Full Code TEDs: N/A Rehab Potential: Good Therapy: Physical Therapy and Occupational Therapy Therapy Orders: Evaluate and Treat and Other Therapy Orders Additional Information: NWB on LLE (tibial plateau fracture) x6 weeks (see above) Oxygen: No Urinary Catheter: No Orders are good >30 days: Yes Signature: Kari Heredia MD
--- NOTE | 2024-05-15 12:06 | PC.NURSE ---
Discharge to SNF. Patient alert and oriented. SBA with standup walker to bedside commode. non-wt bearing on left side. Knee immobilizer in place and left wrist in splint. Active ice throughout. Patient tolerating a reg. diet. VSS denies N/V/SOB. Patient discharged to [facility] for short term rehab stay at 1150 via non-emergent transport. Discharge paperwork signed. Patient verbalized understanding. Nurse to Nurse given to Jazmine Rubio.
== END 2024-05-15 11:50 | DRG 563 ==
LOC: ED 18:23 → MEDSURG 19:39
PROVIDERS: Family Medicine; Admitting Provider Family Medicine; Emergency Provider Emergency Medicine Emergency Medical Services; PCP Family Medicine; Visit Provider Family Medicine
DX: S82.145A Nondisplaced bicondylar fracture of left tibia, initial encounter for closed fracture (principal); Z68.42 Body mass index [BMI] 45.0-49.9, adult; S02.2XXA Fracture of nasal bones, initial encounter for closed fracture; S52.125A Nondisplaced fracture of head of left radius, initial encounter for closed fracture; S62.115A Nondisplaced fracture of triquetrum [cuneiform] bone, left wrist, initial encounter for closed fracture; W01.0XXA Fall on same level from slipping, tripping and stumbling without subsequent striking against object, initial encounter; Y93.E3 Activity, vacuuming; Y92.019 Unspecified place in single-family (private) house as the place of occurrence of the external cause; Z74.09 Other reduced mobility; E66.01 Morbid (severe) obesity due to excess calories; I89.0 Lymphedema, not elsewhere classified; Z91.81 History of falling; K21.9 Gastro-esophageal reflux disease without esophagitis; E78.5 Hyperlipidemia, unspecified; I10 Essential (primary) hypertension; M17.12 Unilateral primary osteoarthritis, left knee
CPT/HCPCS: 36415; 70450; 70486; 73090; 73110; 73200; 73562; 73700; 80048; 80053; 85025; 85027; 86140; 97110; 97162; 97165; 97530; 97535; 99285; A9153; A9270; G0378; J1650; J1885

== ENCOUNTER 2024-05-15 11:43 | Outpatient (CLI) | payer MEDICARE, SELFPAY | END 2024-05-15 11:44 | disposition home or self-care (01) | PROVIDERS: PCP Family Medicine; Visit Provider Student in an Organized Health Care Education/Training Program | DX: R53.1 Weakness (principal); Z99.3 Dependence on wheelchair | CPT/HCPCS: A0425; A0428 ==